=== PATIENT | female | born 1940 | race Caucasian/White ===

== ENCOUNTER 2017-06-26 08:33 | Inpatient (IN) | payer OTHER, BC ==
[~2017-06-26] VITALS: Ht 144.8 cm; Wt 49.9 kg
[2017-06-26 08:33] VITALS: BP_SYST 92
[~2017-06-26 08:33] MED LIST: AMLO5TAB4 PO; IBUP-786 PO; LEVO88TA2 PO; METHOTREXATE IM/IV/SC; REMI100 IM/IV
[2017-06-26] MEDS ORDERED: NACL 0.9% 1,000 ML IV ONE ×2 (09:00→15:45)
[2017-06-26 09:21] LABS: BASOPHILS % (AUTO) 0.1 % (0.0-2.0); EOSINOPHILS # (AUTO) 0.5 K/uL (0.0-0.4); MEAN CORPUSCULAR HGB CONC 34 % (32-36); MEAN CORPUSCULAR VOLUME 104 fL (79.0-98.0); RED CELL DISTRIBUTION WIDTH 13.6 % (9.0-15.0)
[2017-06-26 09:24] LABS: EOSINOPHILS % (AUTO) 5.6 % (0.0-4.0); HEMATOCRIT 36.7 % (36-48); HEMOGLOBIN 12.4 g/dL (12.0-16.0); LYMPHOCYTES # (AUTO) 1.1 K/uL (1.0-5.5); LYMPHOCYTES % (AUTO) 11.3 % (20.5-51.5); MEAN CORPUSCULAR HEMOGLOBIN 35 pg (27-31); MONOCYTES # (AUTO) 0.4 K/uL (0.0-1.0); NEUTROPHILS # (AUTO) 7.3 K/uL (1.8-7.7); RED BLOOD CELL COUNT(AUTO) 3.52 MIL/uL (4.2-6.2); WHITE BLOOD COUNT (AUTO) 9.3 K/uL (4.8-10.8)
[2017-06-26 09:40] LABS: ANION GAP 14 (5-15); CALCIUM 7.2 mg/dL (8.4-11.0); CHLORIDE 102 mmol/L (98-107); CREATININE 4.01 mg/dL (0.55-1.30); POTASSIUM 4.4 mmol/L (3.5-5.1); SODIUM SERUM 135 mmol/L (136-145); UREA NITROGEN, BLOOD 49 mg/dL (8-21)
[2017-06-26 09:41] LABS: INR 1.3 (0.8-1.2); PROTHROMBIN TIME 13.8 SECS (9.5-12.5)
[2017-06-26 09:59] LABS: PLATELET COUNT (AUTO) 32 K/uL (130-430)
[2017-06-26 10:03] LABS: ALANINE AMINOTRANSFERASE 39 U/L (12-78); ALBUMIN 1.5 g/dL (3.4-4.8); ASPARTATE AMINOTRANSFERASE 113 U/L (10-37); THYROID STIMULATING HORMONE 48.55 uIu/mL (0.36-3.74); TOTAL BILIRUBIN 2.7 mg/dL (0.0-1.0)
[2017-06-26] MEDS ORDERED: DEXTROSE 50% JECT 50 ML DISP.SYRIN ONE ×2 (10:05→10:12)
[2017-06-26 10:10] LABS: GLUCOSE 44 mg/dL (70-99)
[2017-06-26] MEDS ORDERED: DEXTROSE 50% JECT 50 ML DISP.SYRIN IVP ONE (11:00)
[2017-06-26] MEDS ORDERED: MORPHINE 2 MG/ML INJ. SYRINGE IVP ONE (11:15)
[2017-06-26 12:11] VITALS: BP_SYST 113
[2017-06-26 12:19] VITALS: BP_SYST 113
[2017-06-26] MEDS: NACL 0.9% 1,000 ML IV SCH ×2 (12:30→21:39)
[2017-06-26 16:08] LABS: BILIRUBIN,URINE 1+ (NEGATIVE); BLOOD, URINE 2+ (NEGATIVE); CLARITY/URINE CLOUDY (CLEAR); COLOR,URINE YELLOW (YELLOW); GLUCOSE,URINE NEGATIVE (NEGATIVE); KETONES,URINE NEGATIVE (NEGATIVE); LEUKOCYTE ESTERASE ,URINE 3+ (NEGATIVE); NITRITE, URINE POSITIVE (NEGATIVE); PH,URINE 6.5 (5.0-8.0); PROTEIN URINE 2+ (NEGATIVE)
[2017-06-26 16:17] VITALS: BP_SYST 99
[2017-06-26 16:28] LABS: BACTERIA,URINE MANY /HPF (None Seen); MUCUS,URINE None Seen /LPF (None Seen); WBC,URINE >100 /HPF (0-3)
[2017-06-26 16:29] LABS: URINE AMORPHOUS URATE 2+ /HPF (None Seen)
[2017-06-26] MEDS: cefTRIAXone 1 GM IVPB PREMIX 50 ML IV SCH (19:44)
[2017-06-26] MEDS ORDERED: DIPHENHYDRAMINE INJ 50 MG/ML VIAL IVP PRN (20:00)
[2017-06-26] MEDS ORDERED: NS 500 ML IV ONE (20:00)
[2017-06-26 22:00] VITALS: BP_SYST 98
[2017-06-26] MEDS: traMADol HCL HCL 50 MG TABLET (ULTRAM) PO PRN (22:24)
[2017-06-26 23:00] VITALS: BP_SYST 90
[2017-06-26] MEDS ORDERED: metroNIDAZOLE 500 mg/NS 100 ML IV SCH (23:30)
[2017-06-26] MEDS ORDERED: metroNIDAZOLE 500 mg/NS 100 ML IV ONE (23:44)
[2017-06-26] MEDS ORDERED: NOREPINEPHRINE 4 MG/4 ML VIAL IV ONE (23:47)
[2017-06-27] VITALS (24 sets, daily range): BP systolic 73–143
[2017-06-27] MEDS: NACL 0.9% 1,000 ML IV SCH ×5 (02:04→23:31)
[2017-06-27] MEDS ORDERED: NOREPINEPHRINE 4 MG/4 ML VIAL IV ONE (05:04)
[2017-06-27] MEDS: NOREPINEPHRINE BITARTRATE 4 MG in D5W 246 ML IV PRN ×4 (06:13→23:47)
[2017-06-27] MEDS: LEVOTHYROXINE SODIUM 0.1 MG TABLET PO SCH (06:25)
[2017-06-27 06:35] LABS: HEMOGLOBIN 11.6 g/dL (12.0-16.0); MEAN CORPUSCULAR HGB CONC 34 % (32-36); MEAN CORPUSCULAR VOLUME 106 fL (79.0-98.0)
[2017-06-27 06:45] LABS: INR 1.3 (0.8-1.2); PROTHROMBIN TIME 14.4 SECS (9.5-12.5)
[2017-06-27 06:47] LABS: BASOPHILS % (AUTO) 0.2 % (0.0-2.0); EOSINOPHILS # (AUTO) 0.3 K/uL (0.0-0.4); EOSINOPHILS % (AUTO) 3.1 % (0.0-4.0); HEMATOCRIT 34.3 % (36-48); LYMPHOCYTES # (AUTO) 0.8 K/uL (1.0-5.5); LYMPHOCYTES % (AUTO) 9.1 % (20.5-51.5); MEAN CORPUSCULAR HEMOGLOBIN 36 pg (27-31); MONOCYTES # (AUTO) 0.2 K/uL (0.0-1.0); MONOCYTES % (AUTO) 1.9 % (1.7-9.3); NEUTROPHILS % (AUTO) 85.7 % (40.0-70.0); RED BLOOD CELL COUNT(AUTO) 3.25 MIL/uL (4.2-6.2); RED CELL DISTRIBUTION WIDTH 13.7 % (9.0-15.0); WHITE BLOOD COUNT (AUTO) 9.3 K/uL (4.8-10.8)
[2017-06-27 07:06] LABS: ALANINE AMINOTRANSFERASE 30 U/L (12-78); ALBUMIN 1.4 g/dL (3.4-4.8); AMYLASE 9 U/L (0-100); ANION GAP 13 (5-15); ASPARTATE AMINOTRANSFERASE 83 U/L (10-37); CHLORIDE 110 mmol/L (98-107); CREATININE 3.12 mg/dL (0.55-1.30); GLUCOSE 51 mg/dL (70-99); LIPASE 27 U/L (73-393); POTASSIUM 3.1 mmol/L (3.5-5.1); SODIUM SERUM 140 mmol/L (136-145); TOTAL BILIRUBIN 3.1 mg/dL (0.0-1.0); UREA NITROGEN, BLOOD 42 mg/dL (8-21)
[2017-06-27 07:09] LABS: BILIRUBIN,URINE NEGATIVE (NEGATIVE); BLOOD, URINE NEGATIVE (NEGATIVE); CLARITY/URINE CLEAR (CLEAR); COLOR,URINE YELLOW (YELLOW); GLUCOSE,URINE NEGATIVE (NEGATIVE); KETONES,URINE NEGATIVE (NEGATIVE); LEUKOCYTE ESTERASE ,URINE NEGATIVE (NEGATIVE); NITRITE, URINE NEGATIVE (NEGATIVE); PROTEIN URINE NEGATIVE (NEGATIVE); UROBILINOGEN,URINE 0.2 (0.2-1.0)
[2017-06-27 07:14] LABS: CALCIUM 6.1 mg/dL (8.4-11.0)
[2017-06-27 08:28] LABS: PLATELET COUNT (AUTO) 24 K/uL (130-430)
[2017-06-27] MEDS ORDERED: CALCIUM CHLORIDE 1 GM in NS 100 ML IV ONE (08:45)
[2017-06-27] MEDS ORDERED: POTASSIUM CHLORIDE 20 MEQ TAB.PRT.SR PO ONE (08:45)
[2017-06-27] MEDS ORDERED: LEVOTHYROXINE SODIUM 0.088 MG TABLET PO SCH (09:00)
[2017-06-27 10:03] LABS: FREE T4 (FREE THYROXINE) 0.2 ng/dl (0.8-1.5)
[2017-06-27] MEDS: NEPHROVITE, (FOLIC ACID/VITAMIN B COMP W-C 1 TAB) PO SCH (10:28)
[2017-06-27 10:36] LABS: FIBRINOGEN 290 mg/dL (200-400)
[2017-06-27] MEDS ORDERED: GENTAMICIN 100 mg/50 mL NS 50 ML IV ONE (15:00)
[2017-06-27] MEDS ORDERED: MAG-AL HYDROX/SIMETH 30 ML UDC PO PRN (16:15)
[2017-06-27] MEDS ORDERED: PHYTONADIONE 5 MG TABLET PO ONE ×2 (17:15→19:30)
[2017-06-27] MEDS: ALBUMIN HUMAN 25% 50 ML IV SCH ×2 (17:44→21:30)
[2017-06-27 18:43] LABS: INR 1.4 (0.8-1.2); PROTHROMBIN TIME 14.9 SECS (9.5-12.5)
[2017-06-27] MEDS: cefTRIAXone 1 GM IVPB PREMIX 50 ML IV SCH (18:51)
[2017-06-27] MEDS: DEXAMETHASONE SOD PHOSPHATE 4 MG/ML VIAL IVP SCH (18:52)
[2017-06-27] MEDS: LEUCOVORIN CALCIUM 5 MG TABLET PO SCH (20:13)
[2017-06-27] MEDS: FAMOTIDINE 20 MG TABLET PO SCH (20:32)
[2017-06-27] MEDS: traMADol HCL HCL 50 MG TABLET (ULTRAM) PO PRN (23:01)
[2017-06-28] VITALS (23 sets, daily range): BP systolic 100–165
[2017-06-28] MEDS: LEUCOVORIN CALCIUM 5 MG TABLET PO SCH ×2 (05:33→17:36)
[2017-06-28] MEDS: NACL 0.9% 1,000 ML IV SCH ×2 (05:34→11:40)
[2017-06-28] MEDS: NOREPINEPHRINE BITARTRATE 4 MG in D5W 246 ML IV PRN (05:35)
[2017-06-28] MEDS: LEVOTHYROXINE SODIUM 0.1 MG TABLET PO SCH (06:29)
[2017-06-28 06:50] LABS: INR 1.3 (0.8-1.2); PROTHROMBIN TIME 14.3 SECS (9.5-12.5)
[2017-06-28 06:54] LABS: ALANINE AMINOTRANSFERASE 32 U/L (12-78); ALBUMIN 2.3 g/dL (3.4-4.8); ANION GAP 14 (5-15); ASPARTATE AMINOTRANSFERASE 111 U/L (10-37); CHLORIDE 108 mmol/L (98-107); CREATININE 2.74 mg/dL (0.55-1.30); GLUCOSE 186 mg/dL (70-99); POTASSIUM 4.4 mmol/L (3.5-5.1); SODIUM SERUM 133 mmol/L (136-145); TOTAL BILIRUBIN 5.1 mg/dL (0.0-1.0); UREA NITROGEN, BLOOD 39 mg/dL (8-21)
[2017-06-28 07:18] LABS: CALCIUM 6.5 mg/dL (8.4-11.0)
[2017-06-28 08:54] LABS: MEAN CORPUSCULAR HGB CONC 34 % (32-36); WHITE BLOOD COUNT (AUTO) 18.4 K/uL (4.8-10.8)
[2017-06-28] MEDS: NEPHROVITE, (FOLIC ACID/VITAMIN B COMP W-C 1 TAB) PO SCH (08:54)
[2017-06-28] MEDS: FAMOTIDINE 20 MG TABLET PO SCH ×2 (08:54→21:00)
[2017-06-28] MEDS: PANTOPRAZOLE SODIUM 40 MG TAB PO SCH (08:56)
[2017-06-28 08:57] LABS: HEMATOCRIT 31.4 % (36-48); HEMOGLOBIN 10.7 g/dL (12.0-16.0); MEAN CORPUSCULAR HEMOGLOBIN 36 pg (27-31); MEAN CORPUSCULAR VOLUME 105 fL (79.0-98.0); RED CELL DISTRIBUTION WIDTH 13.8 % (9.0-15.0)
[2017-06-28 09:36] LABS: ATYPICAL LYMPHOCYTES % 0 % (0-0); BAND % (MANUAL) 11 % (0-6); BASOPHILS % (MANUAL) 0 % (0-2); EOSINOPHILS % (MANUAL) 0 % (0-7); LYMPHOCYTES % (MANUAL) 5 % (20-46); MONOCYTES % (MANUAL) 3 % (0-11); PLATELET COUNT (AUTO) 24 K/uL (130-430)
[2017-06-28] MEDS: JECT IV SCH ×2 (15:49→23:30)
[2017-06-28] MEDS: SODIUM BICARBONATE 8.4% IV SCH ×2 (15:49→23:30)
[2017-06-28] MEDS: NACL 0.45% IV SCH ×2 (15:49→23:30)
[2017-06-28] MEDS: cefTRIAXone 1 GM IVPB PREMIX 50 ML IV SCH (17:36)
[2017-06-28] MEDS: DEXAMETHASONE SOD PHOSPHATE 4 MG/ML VIAL IVP SCH (17:37)
[2017-06-28] MEDS ORDERED: HEPARIN SODIUM,PORCINE 5000 UNITS/ML VIAL ONE (19:26)
[2017-06-29] VITALS (24 sets, daily range): BP systolic 104–159
[2017-06-29] MEDS: LEUCOVORIN CALCIUM 5 MG TABLET PO SCH ×2 (05:08→18:48)
[2017-06-29] MEDS: LEVOTHYROXINE SODIUM 0.1 MG TABLET PO SCH (06:25)
[2017-06-29 06:43] LABS: HEMOGLOBIN 9.6 g/dL (12.0-16.0); MEAN CORPUSCULAR HEMOGLOBIN 36 pg (27-31)
[2017-06-29 06:52] LABS: INR 1.2 (0.8-1.2); PROTHROMBIN TIME 13.5 SECS (9.5-12.5)
[2017-06-29 06:57] LABS: EOSINOPHILS % (AUTO) 0.1 % (0.0-4.0); HEMATOCRIT 27.6 % (36-48); LYMPHOCYTES % (AUTO) 7.8 % (20.5-51.5); MEAN CORPUSCULAR HGB CONC 35 % (32-36); MEAN CORPUSCULAR VOLUME 103 fL (79.0-98.0); MONOCYTES # (AUTO) 0.2 K/uL (0.0-1.0); MONOCYTES % (AUTO) 1.3 % (1.7-9.3); NEUTROPHILS # (AUTO) 11.4 K/uL (1.8-7.7); NEUTROPHILS % (AUTO) 90.8 % (40.0-70.0); RED BLOOD CELL COUNT(AUTO) 2.67 MIL/uL (4.2-6.2); RED CELL DISTRIBUTION WIDTH 13.9 % (9.0-15.0); WHITE BLOOD COUNT (AUTO) 12.6 K/uL (4.8-10.8)
[2017-06-29 07:02] LABS: ANION GAP 14 (5-15); CHLORIDE 108 mmol/L (98-107); CREATININE 2.34 mg/dL (0.55-1.30); GLUCOSE 82 mg/dL (70-99); POTASSIUM 3.1 mmol/L (3.5-5.1); SODIUM SERUM 137 mmol/L (136-145); UREA NITROGEN, BLOOD 42 mg/dL (8-21)
[2017-06-29] MEDS: NACL 0.45% IV SCH ×2 (07:06→15:59)
[2017-06-29] MEDS: JECT IV SCH ×2 (07:06→15:59)
[2017-06-29] MEDS: SODIUM BICARBONATE 8.4% IV SCH ×2 (07:06→15:59)
[2017-06-29 07:23] LABS: BILIRUBIN,DIRECT 5.2 mg/dL (0.0-0.3)
[2017-06-29 07:36] LABS: CALCIUM 5.8 mg/dL (8.4-11.0)
[2017-06-29 08:00] LABS: PLATELET COUNT (AUTO) 11 K/uL (130-430)
[2017-06-29] MEDS: LACTULOSE 20 GM/30 ML UDC PO SCH ×2 (08:44→20:44)
[2017-06-29] MEDS: PANTOPRAZOLE SODIUM 40 MG TAB PO SCH (08:44)
[2017-06-29] MEDS: FAMOTIDINE 20 MG TABLET PO SCH (08:44)
[2017-06-29] MEDS: NEPHROVITE, (FOLIC ACID/VITAMIN B COMP W-C 1 TAB) PO SCH (08:45)
[2017-06-29] MEDS ORDERED: COMMUNICATION ORDER XX ONE (09:30)
[2017-06-29] MEDS ORDERED: CALCIUM GLUCONATE 1 GM/10 ML VIAL IVP ONE (10:45)
[2017-06-29] MEDS ORDERED: CALCIUM GLUCONATE 1 GM in D5W 50 ML IV ONE (11:30)
[2017-06-29] MEDS ORDERED: POTASSIUM CHLORIDE 30 MEQ in NS 250 ML IV ONE (11:30)
[2017-06-29 12:04] LABS: ALBUMIN 1.9 g/dL (3.4-4.8); BILIRUBIN,DIRECT 5.1 mg/dL (0.0-0.3); TOTAL BILIRUBIN 5.9 mg/dL (0.0-1.0)
[2017-06-29 12:23] LABS: FOLATE (FOLIC ACID) >20.0 ng/mL (>3.0)
[2017-06-29 14:39] LABS: FERRITIN 638 ng/mL (15-150)
[2017-06-29] MEDS: DEXAMETHASONE SOD PHOSPHATE 4 MG/ML VIAL IVP SCH (18:30)
[2017-06-29] MEDS: cefTRIAXone 1 GM IVPB PREMIX 50 ML IV SCH (18:35)
[2017-06-30] VITALS (20 sets, daily range): BP systolic 92–142
[2017-06-30] MEDS: JECT IV SCH (00:23)
[2017-06-30] MEDS: NACL 0.45% IV SCH (00:23)
[2017-06-30] MEDS: SODIUM BICARBONATE 8.4% IV SCH (00:23)
[2017-06-30] MEDS ORDERED: LevALBUTEROL HCL 1.25 MG/0.5 ML *CONC.* VIAL.NEB (XOPENEX CONC.) INH PRN (04:15)
[2017-06-30] MEDS ORDERED: FUROSEMIDE 40 MG/4 ML VIAL IVP ONE (04:15)
[2017-06-30] MEDS ORDERED: LevALBUTEROL HCL 1.25 MG/0.5 ML *CONC.* VIAL.NEB (XOPENEX CONC.) INH ONE (04:36)
[2017-06-30 07:18] LABS: INR 1.2 (0.8-1.2); PROTHROMBIN TIME 12.7 SECS (9.5-12.5)
[2017-06-30 08:27] LABS: FIBRINOGEN 207 mg/dL (200-400)
[2017-06-30] MEDS: LEVOTHYROXINE SODIUM 0.1 MG VIAL IVP SCH (08:53)
[2017-06-30] MEDS: PANTOPRAZOLE SODIUM 40 MG TAB PO SCH (08:53)
[2017-06-30] MEDS: LACTULOSE 20 GM/30 ML UDC PO SCH ×2 (08:53→20:46)
[2017-06-30] MEDS: LEUCOVORIN CALCIUM 5 MG TABLET PO SCH (08:54)
[2017-06-30] MEDS: QUEtiapine FUMARATE 25 MG TABLET PO SCH ×3 (08:54→20:47)
[2017-06-30] MEDS: NEPHROVITE, (FOLIC ACID/VITAMIN B COMP W-C 1 TAB) PO SCH (08:54)
[2017-06-30 09:29] LABS: HEMATOCRIT 28.8 % (36-48); HEMOGLOBIN 9.8 g/dL (12.0-16.0); MEAN CORPUSCULAR HEMOGLOBIN 35 pg (27-31); MEAN CORPUSCULAR HGB CONC 34 % (32-36); MEAN CORPUSCULAR VOLUME 103 fL (79.0-98.0); PLATELET COUNT (AUTO) 54 K/uL (130-430); RED CELL DISTRIBUTION WIDTH 13.6 % (9.0-15.0); WHITE BLOOD COUNT (AUTO) 9.9 K/uL (4.8-10.8)
[2017-06-30 09:38] LABS: ALANINE AMINOTRANSFERASE 124 U/L (12-78); ALBUMIN 2.1 g/dL (3.4-4.8); ANION GAP 17 (5-15); ASPARTATE AMINOTRANSFERASE 283 U/L (10-37); CHLORIDE 105 mmol/L (98-107); CREATININE 1.96 mg/dL (0.55-1.30); GLUCOSE 69 mg/dL (70-99); SODIUM SERUM 140 mmol/L (136-145); TOTAL BILIRUBIN 6.1 mg/dL (0.0-1.0); UREA NITROGEN, BLOOD 37 mg/dL (8-21)
[2017-06-30 10:18] LABS: POTASSIUM 2.7 mmol/L (3.5-5.1)
[2017-06-30 10:19] LABS: CALCIUM 6.1 mg/dL (8.4-11.0)
[2017-06-30 10:36] LABS: BASOPHILS % (MANUAL) 0 % (0-2); EOSINOPHILS % (MANUAL) 0 % (0-7); LYMPHOCYTES % (MANUAL) 11 % (20-46); MONOCYTES % (MANUAL) 3 % (0-11)
[2017-06-30] MEDS: CALCIUM CARBONATE/VITAMIN D3 1 TAB TABLET PO SCH ×2 (10:52→20:48)
[2017-06-30] MEDS: POTASSIUM CHLORIDE 20 MEQ TAB.PRT.SR PO SCH ×2 (10:53→20:48)
[2017-06-30 11:00] LABS: HEPATITIS A AB, IgM Negative (Negative); HEPATITIS B CORE AB, TOTAL Negative (Negative); HEPATITIS B SURFACE AG Negative (Negative); HEPATITIS C VIRUS AB <0.1 s/co ratio (0.0-0.9)
[2017-06-30] MEDS ORDERED: LORazepam 2 MG/ML VIAL ONE (12:46)
[2017-06-30 17:12] LABS: ANTI NUCLEAR AB WITH REFLEX Negative (Negative)
[2017-06-30] MEDS: cefTRIAXone 1 GM IVPB PREMIX 50 ML IV SCH (17:16)
[2017-07-01] VITALS (8 sets, daily range): BP systolic 124–137
[2017-07-01 01:22] LABS: ALPHA-1-ANTITRYPSIN, S 189 mg/dL (90-200); CERULOPLASMIN 10.9 mg/dL (19.0-39.0)
[2017-07-01 07:19] LABS: HEMATOCRIT 26.8 % (36-48); HEMOGLOBIN 9.2 g/dL (12.0-16.0); MEAN CORPUSCULAR HEMOGLOBIN 36 pg (27-31); MEAN CORPUSCULAR HGB CONC 34 % (32-36); MEAN CORPUSCULAR VOLUME 103 fL (79.0-98.0); RED CELL DISTRIBUTION WIDTH 13.5 % (9.0-15.0); WHITE BLOOD COUNT (AUTO) 10.1 K/uL (4.8-10.8)
[2017-07-01 07:30] LABS: INR 1.2 (0.8-1.2); PROTHROMBIN TIME 13.1 SECS (9.5-12.5)
[2017-07-01 07:32] LABS: ALANINE AMINOTRANSFERASE 127 U/L (12-78); ALBUMIN 1.8 g/dL (3.4-4.8); ANION GAP 11 (5-15); ASPARTATE AMINOTRANSFERASE 206 U/L (10-37); BILIRUBIN,DIRECT 2.4 mg/dL (0.0-0.3); CHLORIDE 111 mmol/L (98-107); CREATININE 1.84 mg/dL (0.55-1.30); GLUCOSE 54 mg/dL (70-99); SODIUM SERUM 144 mmol/L (136-145); TOTAL BILIRUBIN 3.4 mg/dL (0.0-1.0); UREA NITROGEN, BLOOD 38 mg/dL (8-21)
[2017-07-01 07:35] LABS: PLATELET COUNT (AUTO) 47 K/uL (130-430)
[2017-07-01 07:53] LABS: POTASSIUM 2.4 mmol/L (3.5-5.1)
[2017-07-01 07:54] LABS: CALCIUM 6.2 mg/dL (8.4-11.0)
[2017-07-01] MEDS ORDERED: POTASSIUM CHLORIDE 40 MEQ in NS 250 ML IV ONE (08:15)
[2017-07-01] MEDS: LACTULOSE 20 GM/30 ML UDC PO SCH (08:18)
[2017-07-01] MEDS: POTASSIUM CHLORIDE 20 MEQ TAB.PRT.SR PO SCH ×2 (08:18→21:05)
[2017-07-01] MEDS: NEPHROVITE, (FOLIC ACID/VITAMIN B COMP W-C 1 TAB) PO SCH (08:18)
[2017-07-01] MEDS: PANTOPRAZOLE SODIUM 40 MG TAB PO SCH (08:18)
[2017-07-01] MEDS: CALCIUM CARBONATE/VITAMIN D3 1 TAB TABLET PO SCH ×2 (08:18→21:05)
[2017-07-01] MEDS: QUEtiapine FUMARATE 25 MG TABLET PO SCH ×3 (08:19→21:05)
[2017-07-01] MEDS: LEVOTHYROXINE SODIUM 0.1 MG VIAL IVP SCH (08:20)
[2017-07-01 09:02] LABS: BASOPHILS % (MANUAL) 0 % (0-2); EOSINOPHILS % (MANUAL) 0 % (0-7); LYMPHOCYTES % (MANUAL) 20 % (20-46); MONOCYTES % (MANUAL) 4 % (0-11)
[2017-07-01 11:07] LABS: PTT-LA 49.6 sec (0.0-51.9)
[2017-07-01] MEDS: cefTRIAXone 1 GM IVPB PREMIX 50 ML IV SCH (17:03)
[2017-07-01] MEDS ORDERED: cefTRIAXone 1 GM IVPB PREMIX 0 ML IV ONE (20:42)
[2017-07-01] MEDS: KCL 10 mEq in D5/0.45NS 1000mL 1,000 ML IV SCH (20:47)
[2017-07-02 04:48] VITALS: BP_SYST 132
[2017-07-02 07:33] LABS: HEMATOCRIT 23.9 % (36-48); HEMOGLOBIN 8.2 g/dL (12.0-16.0); MEAN CORPUSCULAR HEMOGLOBIN 36 pg (27-31); MEAN CORPUSCULAR HGB CONC 35 % (32-36); MEAN CORPUSCULAR VOLUME 103 fL (79.0-98.0); RED BLOOD CELL COUNT(AUTO) 2.31 MIL/uL (4.2-6.2); RED CELL DISTRIBUTION WIDTH 13.5 % (9.0-15.0); WHITE BLOOD COUNT (AUTO) 6.5 K/uL (4.8-10.8)
[2017-07-02 07:46] VITALS: BP_SYST 138
[2017-07-02 07:55] LABS: PLATELET COUNT (AUTO) 46 K/uL (130-430)
[2017-07-02 08:12] LABS: ALANINE AMINOTRANSFERASE 131 U/L (12-78); ALBUMIN 1.7 g/dL (3.4-4.8); ANION GAP 12 (5-15); ASPARTATE AMINOTRANSFERASE 203 U/L (10-37); CHLORIDE 116 mmol/L (98-107); CREATININE 1.16 mg/dL (0.55-1.30); GLUCOSE 95 mg/dL (70-99); SODIUM SERUM 147 mmol/L (136-145); TOTAL BILIRUBIN 2.6 mg/dL (0.0-1.0); UREA NITROGEN, BLOOD 24 mg/dL (8-21)
[2017-07-02 09:42] LABS: BASOPHILS % (MANUAL) 0 % (0-2); EOSINOPHILS % (MANUAL) 1 % (0-7); LYMPHOCYTES % (MANUAL) 19 % (20-46); MONOCYTES % (MANUAL) 4 % (0-11)
[2017-07-02] MEDS: NEPHROVITE, (FOLIC ACID/VITAMIN B COMP W-C 1 TAB) PO SCH (09:53)
[2017-07-02] MEDS: CALCIUM CARBONATE/VITAMIN D3 1 TAB TABLET PO SCH ×2 (09:53→20:44)
[2017-07-02] MEDS: POTASSIUM CHLORIDE 20 MEQ TAB.PRT.SR PO SCH ×2 (09:53→20:44)
[2017-07-02] MEDS: LACTULOSE 20 GM/30 ML UDC PO SCH (09:53)
[2017-07-02] MEDS: LEVOTHYROXINE SODIUM 0.1 MG VIAL IVP SCH (09:54)
[2017-07-02] MEDS: PANTOPRAZOLE SODIUM 40 MG TAB PO SCH (09:54)
[2017-07-02] MEDS: QUEtiapine FUMARATE 25 MG TABLET PO SCH ×3 (09:54→20:45)
[2017-07-02 11:27] VITALS: BP_SYST 145
[2017-07-02 14:50] LABS: dRVVT 67.9 sec (0.0-47.0); dRVVT MIX 53.9 sec (0.0-47.0)
[2017-07-02] MEDS: KCL 10 mEq in D5/0.45NS 1000mL 1,000 ML IV SCH (14:50)
[2017-07-02 14:51] LABS: ANTI-SMOOTH MUSCLE AB 29 Units (0-19)
[2017-07-02] MEDS ORDERED: POTASSIUM CHLORIDE 20 MEQ TAB.PRT.SR PO ONE (16:00)
[2017-07-02] MEDS: cefTRIAXone 1 GM IVPB PREMIX 50 ML IV SCH (17:13)
[2017-07-02 18:02] VITALS: BP_SYST 140
[2017-07-02 20:17] VITALS: BP_SYST 143
[2017-07-02] MEDS: ACETAMINOPHEN 325 MG TABLET PO PRN (23:44)
[2017-07-03 00:04] VITALS: BP_SYST 137
[2017-07-03 06:17] VITALS: BP_SYST 129
[2017-07-03 07:42] LABS: ALANINE AMINOTRANSFERASE 115 U/L (12-78); ALBUMIN 1.7 g/dL (3.4-4.8); ANION GAP 9 (5-15); ASPARTATE AMINOTRANSFERASE 130 U/L (10-37); CHLORIDE 116 mmol/L (98-107); CREATININE 0.86 mg/dL (0.55-1.30); GLUCOSE 100 mg/dL (70-99); POTASSIUM 3.3 mmol/L (3.5-5.1); SODIUM SERUM 146 mmol/L (136-145); TOTAL BILIRUBIN 2.1 mg/dL (0.0-1.0); UREA NITROGEN, BLOOD 13 mg/dL (8-21)
[2017-07-03 07:44] LABS: HEMATOCRIT 24.6 % (36-48); HEMOGLOBIN 8.3 g/dL (12.0-16.0); MEAN CORPUSCULAR HEMOGLOBIN 35 pg (27-31); MEAN CORPUSCULAR HGB CONC 34 % (32-36); MEAN CORPUSCULAR VOLUME 104 fL (79.0-98.0); RED BLOOD CELL COUNT(AUTO) 2.37 MIL/uL (4.2-6.2); RED CELL DISTRIBUTION WIDTH 13.4 % (9.0-15.0); WHITE BLOOD COUNT (AUTO) 6.4 K/uL (4.8-10.8)
[2017-07-03 08:01] VITALS: BP_SYST 133
[2017-07-03 08:26] LABS: PLATELET COUNT (AUTO) 48 K/uL (130-430)
[2017-07-03] MEDS: POTASSIUM CHLORIDE 20 MEQ TAB.PRT.SR PO SCH ×2 (09:05→21:00)
[2017-07-03] MEDS: PANTOPRAZOLE SODIUM 40 MG TAB PO SCH (09:06)
[2017-07-03] MEDS: NEPHROVITE, (FOLIC ACID/VITAMIN B COMP W-C 1 TAB) PO SCH (09:06)
[2017-07-03] MEDS: LACTULOSE 20 GM/30 ML UDC PO SCH (09:06)
[2017-07-03] MEDS: QUEtiapine FUMARATE 25 MG TABLET PO SCH ×3 (09:06→21:00)
[2017-07-03] MEDS: CALCIUM CARBONATE/VITAMIN D3 1 TAB TABLET PO SCH ×2 (09:06→21:00)
[2017-07-03] MEDS ORDERED: IBUPROFEN 600 MG TABLET PO PRN (09:45)
[2017-07-03] MEDS ORDERED: LORazepam 2 MG/ML VIAL IVP ONE (09:45)
[2017-07-03] MEDS: ACETAMINOPHEN 325 MG TABLET PO PRN (09:53)
[2017-07-03] MEDS: LEVOTHYROXINE SODIUM 0.1 MG VIAL IVP SCH (10:19)
[2017-07-03 10:29] LABS: ATYPICAL LYMPHOCYTES % 0 % (0-0); BAND % (MANUAL) 3 % (0-6); BASOPHILS % (MANUAL) 0 % (0-2); EOSINOPHILS % (MANUAL) 0 % (0-7); LYMPHOCYTES % (MANUAL) 21 % (20-46); MONOCYTES % (MANUAL) 2 % (0-11)
[2017-07-03 12:14] VITALS: BP_SYST 126
[2017-07-03 16:30] VITALS: BP_SYST 123
[2017-07-03 20:00] VITALS: BP_SYST 143
[2017-07-03] MEDS: KCL 10 mEq in D5/0.45NS 1000mL 1,000 ML IV SCH (23:10)
[2017-07-04] VITALS (7 sets, daily range): BP systolic 133–149
[2017-07-04 07:53] LABS: INR 1.1 (0.8-1.2); PROTHROMBIN TIME 12.1 SECS (9.5-12.5)
[2017-07-04 08:16] LABS: ANION GAP 11 (5-15); CHLORIDE 114 mmol/L (98-107); POTASSIUM 3.1 mmol/L (3.5-5.1); SODIUM SERUM 146 mmol/L (136-145)
[2017-07-04 08:31] LABS: BASOPHILS % (AUTO) 0.4 % (0.0-2.0); EOSINOPHILS # (AUTO) 0.1 K/uL (0.0-0.4); EOSINOPHILS % (AUTO) 0.7 % (0.0-4.0); HEMATOCRIT 25.8 % (36-48); HEMOGLOBIN 8.6 g/dL (12.0-16.0); LYMPHOCYTES # (AUTO) 1.1 K/uL (1.0-5.5); LYMPHOCYTES % (AUTO) 11.2 % (20.5-51.5); MEAN CORPUSCULAR HEMOGLOBIN 35 pg (27-31); MEAN CORPUSCULAR HGB CONC 34 % (32-36); MEAN CORPUSCULAR VOLUME 104 fL (79.0-98.0); MONOCYTES # (AUTO) 0.1 K/uL (0.0-1.0); MONOCYTES % (AUTO) 0.8 % (1.7-9.3); NEUTROPHILS # (AUTO) 8.2 K/uL (1.8-7.7); RED BLOOD CELL COUNT(AUTO) 2.48 MIL/uL (4.2-6.2); RED CELL DISTRIBUTION WIDTH 13.7 % (9.0-15.0); WHITE BLOOD COUNT (AUTO) 9.5 K/uL (4.8-10.8)
[2017-07-04 08:56] LABS: PLATELET COUNT (AUTO) 53 K/uL (130-430)
[2017-07-04 09:09] LABS: ALANINE AMINOTRANSFERASE 98 U/L (12-78); ALBUMIN 1.9 g/dL (3.4-4.8); ASPARTATE AMINOTRANSFERASE 93 U/L (10-37); BILIRUBIN,DIRECT 1.3 mg/dL (0.0-0.3); CREATININE 0.76 mg/dL (0.55-1.30); GLUCOSE 88 mg/dL (70-99); TOTAL BILIRUBIN 1.8 mg/dL (0.0-1.0); UREA NITROGEN, BLOOD 7 mg/dL (8-21)
[2017-07-04] MEDS: LACTULOSE 20 GM/30 ML UDC PO SCH (09:19)
[2017-07-04] MEDS: NEPHROVITE, (FOLIC ACID/VITAMIN B COMP W-C 1 TAB) PO SCH (09:19)
[2017-07-04] MEDS: POTASSIUM CHLORIDE 20 MEQ TAB.PRT.SR PO SCH (09:19)
[2017-07-04] MEDS: CALCIUM CARBONATE/VITAMIN D3 1 TAB TABLET PO SCH (09:19)
[2017-07-04] MEDS: PANTOPRAZOLE SODIUM 40 MG TAB PO SCH (09:20)
[2017-07-04] MEDS: QUEtiapine FUMARATE 25 MG TABLET PO SCH ×2 (09:20→15:56)
[2017-07-04 09:28] LABS: CALCIUM 5.9 mg/dL (8.4-11.0)
[2017-07-04] MEDS: LEVOTHYROXINE SODIUM 0.1 MG VIAL IVP SCH (10:23)
[2017-07-04 11:38] LABS: NEUTROPHILS % (AUTO) 86.9 % (40.0-70.0)
[2017-07-04] MEDS ORDERED: cefTRIAXone 1 GM in D5W 50 ML IV SCH (17:00)
[2017-07-05] MEDS ORDERED: LEVOTHYROXINE SODIUM 0.1 MG TABLET PO SCH (07:00)
== END 2017-07-04 20:00 | DRG 871 ==
LOC: SED 08:33 → STU 11:38 → SIC 21:07 → STU 06-30 18:44
PROVIDERS: ADMIT Internal Medicine; ATTEND Internal Medicine
PROC: 30233R1 Transfusion of Nonautologous Platelets into Peripheral Vein, Percutaneous Approach (ICD-10-PCS; principal; 2017-06-29)
PROC: 02HV33Z Insertion of Infusion Device into Superior Vena Cava, Percutaneous Approach (ICD-10-PCS; 2017-06-30)
DX: A41.51 Sepsis due to Escherichia coli [E. coli] (principal); E43 Unspecified severe protein-calorie malnutrition; N17.0 Acute kidney failure with tubular necrosis; R65.21 Severe sepsis with septic shock; G93.41 Metabolic encephalopathy; J81.1 Chronic pulmonary edema; D68.9 Coagulation defect, unspecified; D68.62 Lupus anticoagulant syndrome; N39.0 Urinary tract infection, site not specified; B17.9 Acute viral hepatitis, unspecified; N12 Tubulo-interstitial nephritis, not specified as acute or chronic; K72.90 Hepatic failure, unspecified without coma; E86.0 Dehydration; D69.6 Thrombocytopenia, unspecified; R09.82 Postnasal drip; E16.2 Hypoglycemia, unspecified; E03.9 Hypothyroidism, unspecified; F10.10 Alcohol abuse, uncomplicated; D64.9 Anemia, unspecified; B96.89 Other specified bacterial agents as the cause of diseases classified elsewhere; E83.51 Hypocalcemia; E87.6 Hypokalemia; R45.1 Restlessness and agitation; F29 Unspecified psychosis not due to a substance or known physiological condition; I10 Essential (primary) hypertension; M06.9 Rheumatoid arthritis, unspecified; M79.7 Fibromyalgia; T45.1X1A Poisoning by antineoplastic and immunosuppressive drugs, accidental (unintentional), initial encounter; Z79.899 Other long term (current) drug therapy; Z87.440 Personal history of urinary (tract) infections; Z88.2 Allergy status to sulfonamides; Z91.14 Patient's other noncompliance with medication regimen; Z98.84 Bariatric surgery status; Z68.23 Body mass index [BMI] 23.0-23.9, adult; Z98.49 Cataract extraction status, unspecified eye; Z90.49 Acquired absence of other specified parts of digestive tract; Z88.0 Allergy status to penicillin; Z88.8 Allergy status to other drugs, medicaments and biological substances; Z88.1 Allergy status to other antibiotic agents; Z91.041 Radiographic dye allergy status
CPT/HCPCS: 36415; 71010; 76700-TC; 80048; 80053; 80076; 81000-TC; 81003; 82103; 82140-TC; 82150-TC; 82247-TC; 82248-TC; 82390; 82607; 82728; 82746; 82784; 82962; 83010; 83516; 83605; 83690-TC; 84439; 84443-TC; 85007; 85025; 85027; 85379; 85384-TC; 85610-TC; 85613; 85670; 85705; 85730-TC; 85732; 86038; 86704; 86706; 86709; 86803; 86900; 86901; 87040-TC; 87081; 87086; 87186-TC; 87340; 93005; 93306; 94640; 96374; 96375; 97110-GP; 97116-GP; 97530-GP; 99285; A6209; C1751; G0482; J0610; J0696; J1100; J1580; J1644; J1940; J2060; J2270; J3480; J3490; J7030; J7040; J7050; J7060; P9034; P9046

== ENCOUNTER 2019-01-06 14:19 | Inpatient (IN) | payer OTHER, BC ==
[2019-01-06] VITALS (7 sets, daily range): BP systolic 78–136
[~2019-01-06] VITALS: Ht 144.8 cm; Wt 50.8 kg
[~2019-01-06 14:19] MED LIST changes: +APIX5TAB PO; +CYAN1TAB52 SL; +CYAN250014 SL; -LEVO88TA2 PO; -METHOTREXATE IM/IV/SC
[2019-01-06] MEDS ORDERED: MVI 10 ML, THIAMINE HCL 100 MG, FOLIC ACID 1 MG, MAGNESIUM SULFATE 1 GM in NACL 0.9% 1,... IV ONE (14:30)
[2019-01-06] MEDS ORDERED: ONDANSETRON HCL 4 MG/2 ML VIAL IVP ONE ×2 (14:30→16:15)
[2019-01-06] MEDS ORDERED: NACL 0.9% 1,000 ML IV ONE ×2 (14:30→17:45)
[2019-01-06] MEDS ORDERED: PANTOPRAZOLE SODIUM 40 MG/VIAL (PROTONIX) IVP ONE (14:30)
[2019-01-06] MEDS ORDERED: OCTREOTIDE ACETATE 100 MCG/ML AMP IVP ONE (15:00)
[2019-01-06 15:25] LABS: RED BLOOD CELL COUNT(AUTO) 2.21 MIL/uL (4.2-6.2); WHITE BLOOD COUNT (AUTO) 6.7 K/uL (4.8-10.8)
[2019-01-06 15:27] LABS: BASOPHILS % (AUTO) 0.2 % (0.0-2.0); HEMATOCRIT 22.4 % (36-48); LYMPHOCYTES % (AUTO) 14.3 % (20.5-51.5); MEAN CORPUSCULAR HEMOGLOBIN 32 pg (27-31); MEAN CORPUSCULAR HGB CONC 31 % (32-36); MEAN CORPUSCULAR VOLUME 101 fL (79.0-98.0); MONOCYTES # (AUTO) 0.3 K/uL (0.0-1.0); MONOCYTES % (AUTO) 3.8 % (1.7-9.3); NEUTROPHILS # (AUTO) 5.5 K/uL (1.8-7.7); NEUTROPHILS % (AUTO) 81.7 % (40.0-70.0); PLATELET COUNT (AUTO) 120 K/uL (130-430); RED CELL DISTRIBUTION WIDTH 15.8 % (9.0-15.0)
[2019-01-06 15:31] LABS: ANION GAP 16 (5-15); CALCIUM 7.4 mg/dL (8.4-11.0); CHLORIDE 106 mmol/L (98-107); GLUCOSE 205 mg/dL (70-99); POTASSIUM 3.7 mmol/L (3.5-5.1); SODIUM SERUM 140 mmol/L (136-145); UREA NITROGEN, BLOOD 11 mg/dL (8-21)
[2019-01-06 15:42] LABS: ALANINE AMINOTRANSFERASE 53 U/L (12-78); ALBUMIN 1.9 g/dL (3.4-4.8); ALCOHOL, BLOOD 209 mg/dL (<10); AMYLASE 33 U/L (0-100); ASPARTATE AMINOTRANSFERASE 144 U/L (10-37); LIPASE 61 U/L (73-393); TOTAL BILIRUBIN 0.7 mg/dL (0.0-1.0)
[2019-01-06 16:00] LABS: INR 1.1 (0.8-1.2); PROTHROMBIN TIME 11.2 SECS (9.5-12.5)
[2019-01-06] MEDS ORDERED: MORPHINE 4 MG/ML INJ. SYRINGE IVP ONE (16:15)
[2019-01-06] MEDS ORDERED: LORazepam 2 MG/ML VIAL (FOR ER USE) IVP ONE (16:15)
[2019-01-06 16:55] LABS: BILIRUBIN,URINE NEGATIVE (NEGATIVE); CLARITY/URINE CLEAR (CLEAR); COLOR,URINE YELLOW (YELLOW); GLUCOSE,URINE NEGATIVE (NEGATIVE); KETONES,URINE NEGATIVE (NEGATIVE); LEUKOCYTE ESTERASE ,URINE NEGATIVE (NEGATIVE); NITRITE, URINE NEGATIVE (NEGATIVE); PROTEIN URINE TRACE (NEGATIVE); UROBILINOGEN,URINE 0.2 (0.2-1.0)
[2019-01-06 16:56] LABS: BLOOD, URINE TRACE (NEGATIVE)
[2019-01-06 17:03] LABS: BACTERIA,URINE FEW /HPF (None Seen); RBC,URINE 0-3 /HPF (0-3); WBC,URINE 0-3 /HPF (0-3)
[2019-01-06 17:11] LABS: BARBITURATE, URINE NEGATIVE (NEG <=200); BENZODIAZEPINE, URINE NEGATIVE (NEG <=150); CANNABINOID, URINE NEGATIVE (NEG <=50); COCAINE, URINE NEGATIVE (NEG <=150); METHAMPHETAMINES SCREEN,URINE NEGATIVE (NEG <=500); OPIATE, URINE NEGATIVE (NEG <=100); PHENCYCLIDINE SCREEN,URINE NEGATIVE (NEG <=25); UR TRICYCLIC ANTIDEPRESSANTS NEGATIVE (NEG <=300); URINE AMPHETAMINE NEGATIVE (NEG <=500); URINE METHADONE NEGATIVE (NEG <=200); URINE OXYCODONE SCREEN NEGATIVE (NEG <=100); URINE PROPOXYPHENE SCREEN NEGATIVE (NEG <=300)
[2019-01-06] MEDS ORDERED: PANTOPRAZOLE SODIUM 80 MG in NS 100 ML IV ONE (17:30)
[2019-01-06] MEDS ORDERED: OCTREOTIDE ACETATE 500 MCG in NS 247.5 ML IV SCH (17:30)
[2019-01-06] MEDS ORDERED: PANTOPRAZOLE SODIUM 40 MG/VIAL (PROTONIX) ONE ×2 (21:04)
[2019-01-06] MEDS ORDERED: OCTREOTIDE ACETATE 200 MCG/1 ML 5ML VIAL ONE (21:11)
[2019-01-06] MEDS ORDERED: MAGNESIUM SULFATE 1 GM/2 ML VIAL ONE (21:47)
[2019-01-06] MEDS ORDERED: THIAMINE HCL 100 MG/ML VIAL ONE (21:47)
[2019-01-06] MEDS ORDERED: MVI 10 ML VIAL IV ONE (21:47)
[2019-01-06] MEDS ORDERED: FOLIC ACID 5 MG/ML VIAL IV ONE (21:47)
[2019-01-06] MEDS: PANTOPRAZOLE SODIUM 40 MG in NS 50 ML IV SCH (21:59)
[2019-01-06] MEDS: FOLIC ACID 1 MG, THIAMINE HCL 100 MG, MAGNESIUM SULFATE 1 GM, MVI 10 ML in NACL 0.9% 1,... IV SCH (23:45)
[2019-01-07] VITALS (24 sets, daily range): BP systolic 91–155
[2019-01-07] MEDS ORDERED: PANTOPRAZOLE SODIUM 40 MG/VIAL (PROTONIX) ONE ×2 (00:39→00:40)
[2019-01-07] MEDS: ONDANSETRON HCL 4 MG/2 ML VIAL IVP PRN ×2 (01:08→10:38)
[2019-01-07] MEDS: PANTOPRAZOLE SODIUM 40 MG in NS 50 ML IV SCH ×6 (01:12→23:29)
[2019-01-07 04:12] LABS: ANION GAP 12 (5-15); CHLORIDE 110 mmol/L (98-107); CREATININE 0.86 mg/dL (0.55-1.30); GLUCOSE 158 mg/dL (70-99); POTASSIUM 3.6 mmol/L (3.5-5.1); SODIUM SERUM 143 mmol/L (136-145); UREA NITROGEN, BLOOD 6 mg/dL (8-21)
[2019-01-07 04:20] LABS: PHOSPHORUS 3.7 mg/dL (2.7-4.5)
[2019-01-07 04:32] LABS: CALCIUM 6.1 mg/dL (8.4-11.0)
[2019-01-07 04:40] LABS: HEMOGLOBIN 9.1 g/dL (12.0-16.0); RED BLOOD CELL COUNT(AUTO) 3.11 MIL/uL (4.2-6.2); WHITE BLOOD COUNT (AUTO) 6.1 K/uL (4.8-10.8)
[2019-01-07 04:41] LABS: HEMATOCRIT 27.5 % (36-48); MEAN CORPUSCULAR HEMOGLOBIN 29 pg (27-31); MEAN CORPUSCULAR HGB CONC 33 % (32-36); MEAN CORPUSCULAR VOLUME 88 fL (79.0-98.0); RED CELL DISTRIBUTION WIDTH 19.6 % (9.0-15.0)
[2019-01-07] MEDS: HYDROmorphone 1 MG INJ. 1 MG/ML AMPUL IVP PRN ×2 (05:03→20:59)
[2019-01-07] MEDS ORDERED: HYDROmorphone 1 MG INJ. 1 MG/ML AMPUL ONE (05:11)
[2019-01-07 05:14] LABS: BASOPHILS % (AUTO) 0.1 % (0.0-2.0); EOSINOPHILS % (AUTO) 0.1 % (0.0-4.0); LYMPHOCYTES # (AUTO) 1.3 K/uL (1.0-5.5); LYMPHOCYTES % (AUTO) 20.6 % (20.5-51.5); MONOCYTES # (AUTO) 0.4 K/uL (0.0-1.0); MONOCYTES % (AUTO) 6.1 % (1.7-9.3); NEUTROPHILS # (AUTO) 4.5 K/uL (1.8-7.7); NEUTROPHILS % (AUTO) 73.1 % (40.0-70.0); PLATELET COUNT (AUTO) 60 K/uL (130-430)
[2019-01-07] MEDS ORDERED: SIMETHICONE 40 MG/0.6 ML ML ONE (07:14)
[2019-01-07] MEDS ORDERED: MIDAZOLAM HCL 5 MG/5 ML VIAL ONE (07:15)
[2019-01-07] MEDS ORDERED: MEPERIDINE HCL/PF 100 MG/ML AMP ONE (07:15)
[2019-01-07] MEDS: FOLIC ACID 1 MG, THIAMINE HCL 100 MG, MAGNESIUM SULFATE 1 GM, MVI 10 ML in NACL 0.9% 1,... IV SCH ×3 (08:50→19:21)
[2019-01-07 11:17] LABS: HEMATOCRIT 27.6 % (36-48)
[2019-01-08] VITALS (22 sets, daily range): BP systolic 94–158
[2019-01-08] MEDS ORDERED: FOLIC ACID 5 MG/ML VIAL IV ONE (01:59)
[2019-01-08] MEDS ORDERED: THIAMINE HCL 100 MG/ML VIAL ONE (02:00)
[2019-01-08] MEDS ORDERED: MAGNESIUM SULFATE 1 GM/2 ML VIAL ONE (02:02)
[2019-01-08] MEDS ORDERED: MVI 10 ML VIAL IV ONE (02:02)
[2019-01-08] MEDS: FOLIC ACID 1 MG, THIAMINE HCL 100 MG, MAGNESIUM SULFATE 1 GM, MVI 10 ML in NACL 0.9% 1,... IV SCH (02:03)
[2019-01-08] MEDS: PANTOPRAZOLE SODIUM 40 MG in NS 50 ML IV SCH ×5 (04:48→22:38)
[2019-01-08 07:36] LABS: ALANINE AMINOTRANSFERASE 35 U/L (12-78); ALBUMIN 1.9 g/dL (3.4-4.8); ANION GAP 9 (5-15); ASPARTATE AMINOTRANSFERASE 79 U/L (10-37); CHLORIDE 106 mmol/L (98-107); CREATININE 0.79 mg/dL (0.55-1.30); GLUCOSE 168 mg/dL (70-99); POTASSIUM 3.2 mmol/L (3.5-5.1); SODIUM SERUM 134 mmol/L (136-145); TOTAL BILIRUBIN 0.7 mg/dL (0.0-1.0); UREA NITROGEN, BLOOD 6 mg/dL (8-21)
[2019-01-08 07:42] LABS: HEMATOCRIT 25.3 % (36-48); HEMOGLOBIN 8.2 g/dL (12.0-16.0); RED BLOOD CELL COUNT(AUTO) 2.81 MIL/uL (4.2-6.2); WHITE BLOOD COUNT (AUTO) 4.4 K/uL (4.8-10.8)
[2019-01-08 07:43] LABS: BASOPHILS % (AUTO) 0.2 % (0.0-2.0); EOSINOPHILS % (AUTO) 2.2 % (0.0-4.0); LYMPHOCYTES # (AUTO) 1.5 K/uL (1.0-5.5); LYMPHOCYTES % (AUTO) 35.3 % (20.5-51.5); MEAN CORPUSCULAR HEMOGLOBIN 29 pg (27-31); MEAN CORPUSCULAR HGB CONC 32 % (32-36); MEAN CORPUSCULAR VOLUME 90 fL (79.0-98.0); MONOCYTES # (AUTO) 0.2 K/uL (0.0-1.0); MONOCYTES % (AUTO) 4.8 % (1.7-9.3); NEUTROPHILS # (AUTO) 2.5 K/uL (1.8-7.7); NEUTROPHILS % (AUTO) 57.5 % (40.0-70.0); RED CELL DISTRIBUTION WIDTH 20.1 % (9.0-15.0)
[2019-01-08 07:44] LABS: EOSINOPHILS # (AUTO) 0.1 K/uL (0.0-0.4)
[2019-01-08 07:45] LABS: CALCIUM 5.7 mg/dL (8.4-11.0)
[2019-01-08] MEDS: LORazepam 2 MG/ML VIAL IM PRN (08:59)
[2019-01-08] MEDS ORDERED: POTASSIUM CHLORIDE 20 MEQ/PKT PACKET PO ONE (09:30)
[2019-01-08 09:53] LABS: PLATELET COUNT (AUTO) 50 K/uL (130-430)
[2019-01-08 10:25] LABS: WHITE BLOOD COUNT (AUTO) 4.4 K/uL (4.8-10.8)
[2019-01-08 10:26] LABS: HEMATOCRIT 24.2 % (36-48); HEMOGLOBIN 7.9 g/dL (12.0-16.0); MEAN CORPUSCULAR HEMOGLOBIN 30 pg (27-31); MEAN CORPUSCULAR HGB CONC 33 % (32-36); MEAN CORPUSCULAR VOLUME 90 fL (79.0-98.0); RED BLOOD CELL COUNT(AUTO) 2.69 MIL/uL (4.2-6.2)
[2019-01-08 10:27] LABS: BASOPHILS % (AUTO) 0.2 % (0.0-2.0); EOSINOPHILS # (AUTO) 0.1 K/uL (0.0-0.4); EOSINOPHILS % (AUTO) 2.2 % (0.0-4.0); LYMPHOCYTES # (AUTO) 1.4 K/uL (1.0-5.5); LYMPHOCYTES % (AUTO) 32.6 % (20.5-51.5); MONOCYTES # (AUTO) 0.2 K/uL (0.0-1.0); NEUTROPHILS # (AUTO) 2.7 K/uL (1.8-7.7)
[2019-01-08 10:43] LABS: PLATELET COUNT (AUTO) 43 K/uL (130-430)
[2019-01-08] MEDS: HYDROmorphone 1 MG INJ. 1 MG/ML AMPUL IVP PRN (12:52)
[2019-01-08] MEDS: KCL 20 mEq in D5/0.45NS 1000mL 1,000 ML IV SCH ×2 (16:39→21:00)
[2019-01-08 18:11] LABS: HEMATOCRIT 26.3 % (36-48); HEMOGLOBIN 8.5 g/dL (12.0-16.0)
[2019-01-08] MEDS: ONDANSETRON HCL 4 MG/2 ML VIAL IVP PRN (18:30)
[2019-01-09] VITALS (24 sets, daily range): BP systolic 97–147
[2019-01-09] MEDS: HYDROmorphone 1 MG INJ. 1 MG/ML AMPUL IVP PRN ×3 (00:31→17:46)
[2019-01-09] MEDS: KCL 20 mEq in D5/0.45NS 1000mL 1,000 ML IV SCH ×2 (03:33→14:08)
[2019-01-09] MEDS: PANTOPRAZOLE SODIUM 40 MG in NS 50 ML IV SCH ×4 (03:57→20:48)
[2019-01-09] MEDS ORDERED: SUCRALFATE 1 GM TABLET PO ONE (09:45)
[2019-01-09 10:20] LABS: HEMOGLOBIN 8.1 g/dL (12.0-16.0); RED BLOOD CELL COUNT(AUTO) 2.78 MIL/uL (4.2-6.2); WHITE BLOOD COUNT (AUTO) 4.4 K/uL (4.8-10.8)
[2019-01-09 10:21] LABS: BASOPHILS % (AUTO) 0.3 % (0.0-2.0); EOSINOPHILS # (AUTO) 0.1 K/uL (0.0-0.4); EOSINOPHILS % (AUTO) 2.9 % (0.0-4.0); HEMATOCRIT 24.8 % (36-48); LYMPHOCYTES # (AUTO) 1.7 K/uL (1.0-5.5); LYMPHOCYTES % (AUTO) 39.1 % (20.5-51.5); MEAN CORPUSCULAR HEMOGLOBIN 29 pg (27-31); MEAN CORPUSCULAR HGB CONC 33 % (32-36); MEAN CORPUSCULAR VOLUME 89 fL (79.0-98.0); MONOCYTES # (AUTO) 0.2 K/uL (0.0-1.0); MONOCYTES % (AUTO) 5.5 % (1.7-9.3); NEUTROPHILS # (AUTO) 2.3 K/uL (1.8-7.7); NEUTROPHILS % (AUTO) 52.2 % (40.0-70.0); RED CELL DISTRIBUTION WIDTH 20.3 % (9.0-15.0)
[2019-01-09] MEDS: ONDANSETRON HCL 4 MG/2 ML VIAL IVP PRN ×2 (11:25→21:04)
[2019-01-09 11:30] LABS: PLATELET COUNT (AUTO) 54 K/uL (130-430)
[2019-01-09] MEDS ORDERED: LEVOTHYROXINE SODIUM 0.088 MG TABLET PO ONE (12:00)
[2019-01-09] MEDS: SUCRALFATE 1 GM TABLET PO SCH ×3 (14:08→20:48)
[2019-01-09 18:25] LABS: HEMATOCRIT 23.3 % (36-48); HEMOGLOBIN 7.6 g/dL (12.0-16.0); MEAN CORPUSCULAR HEMOGLOBIN 30 pg (27-31); MEAN CORPUSCULAR HGB CONC 33 % (32-36); MEAN CORPUSCULAR VOLUME 90 fL (79.0-98.0); RED BLOOD CELL COUNT(AUTO) 2.58 MIL/uL (4.2-6.2); RED CELL DISTRIBUTION WIDTH 20.3 % (9.0-15.0); WHITE BLOOD COUNT (AUTO) 4.2 K/uL (4.8-10.8)
[2019-01-09 18:30] LABS: PLATELET COUNT (AUTO) 45 K/uL (130-430)
[2019-01-09 18:31] LABS: BASOPHILS % (AUTO) 0.2 % (0.0-2.0); EOSINOPHILS # (AUTO) 0.1 K/uL (0.0-0.4); EOSINOPHILS % (AUTO) 2.4 % (0.0-4.0); LYMPHOCYTES # (AUTO) 1.5 K/uL (1.0-5.5); LYMPHOCYTES % (AUTO) 35.9 % (20.5-51.5); MONOCYTES # (AUTO) 0.3 K/uL (0.0-1.0); MONOCYTES % (AUTO) 6.2 % (1.7-9.3); NEUTROPHILS # (AUTO) 2.3 K/uL (1.8-7.7); NEUTROPHILS % (AUTO) 55.3 % (40.0-70.0)
[2019-01-10] VITALS (20 sets, daily range): BP systolic 85–143
[2019-01-10] MEDS: PANTOPRAZOLE SODIUM 40 MG in NS 50 ML IV SCH ×5 (01:38→22:28)
[2019-01-10] MEDS: HYDROmorphone 1 MG INJ. 1 MG/ML AMPUL IVP PRN (01:48)
[2019-01-10] MEDS: KCL 20 mEq in D5/0.45NS 1000mL 1,000 ML IV SCH ×3 (02:50→22:28)
[2019-01-10 05:23] LABS: WHITE BLOOD COUNT (AUTO) 5.8 K/uL (4.8-10.8)
[2019-01-10 05:24] LABS: BASOPHILS % (AUTO) 0.3 % (0.0-2.0); EOSINOPHILS % (AUTO) 2.7 % (0.0-4.0); HEMATOCRIT 32.6 % (36-48); HEMOGLOBIN 10.4 g/dL (12.0-16.0); LYMPHOCYTES % (AUTO) 26.4 % (20.5-51.5); MEAN CORPUSCULAR HEMOGLOBIN 30 pg (27-31); MEAN CORPUSCULAR HGB CONC 32 % (32-36); MEAN CORPUSCULAR VOLUME 93 fL (79.0-98.0); MONOCYTES % (AUTO) 6.8 % (1.7-9.3); NEUTROPHILS # (AUTO) 3.7 K/uL (1.8-7.7); NEUTROPHILS % (AUTO) 63.8 % (40.0-70.0); PLATELET COUNT (AUTO) 53 K/uL (130-430); RED BLOOD CELL COUNT(AUTO) 3.51 MIL/uL (4.2-6.2); RED CELL DISTRIBUTION WIDTH 20.8 % (9.0-15.0)
[2019-01-10 05:25] LABS: EOSINOPHILS # (AUTO) 0.2 K/uL (0.0-0.4); LYMPHOCYTES # (AUTO) 1.5 K/uL (1.0-5.5); MONOCYTES # (AUTO) 0.4 K/uL (0.0-1.0)
[2019-01-10] MEDS: LEVOTHYROXINE SODIUM 0.088 MG TABLET PO SCH (06:16)
[2019-01-10] MEDS ORDERED: POTASSIUM CHLORIDE 20 MEQ TAB.PRT.SR PO ONE (08:30)
[2019-01-10] MEDS: SUCRALFATE 1 GM TABLET PO SCH ×4 (10:59→20:15)
[2019-01-10] MEDS: ONDANSETRON HCL 4 MG/2 ML VIAL IVP PRN (12:09)
[2019-01-10] MEDS: LORazepam 2 MG/ML VIAL IM PRN (12:09)
[2019-01-10] MEDS: traZODone HCL 50 MG TABLET (DESYREL) PO SCH (20:15)
[2019-01-11 01:06] VITALS: BP_SYST 121
[2019-01-11] MEDS: PANTOPRAZOLE SODIUM 40 MG in NS 50 ML IV SCH ×5 (01:42→21:37)
[2019-01-11] MEDS: ONDANSETRON HCL 4 MG/2 ML VIAL IVP PRN ×4 (01:43→23:34)
[2019-01-11] MEDS: HYDROmorphone 1 MG INJ. 1 MG/ML AMPUL IVP PRN ×4 (01:43→23:35)
[2019-01-11] MEDS: LEVOTHYROXINE SODIUM 0.088 MG TABLET PO SCH (06:25)
[2019-01-11 06:48] LABS: ALANINE AMINOTRANSFERASE 37 U/L (12-78); ALBUMIN 1.9 g/dL (3.4-4.8); ANION GAP 5 (5-15); ASPARTATE AMINOTRANSFERASE 94 U/L (10-37); CHLORIDE 113 mmol/L (98-107); CREATININE 0.65 mg/dL (0.55-1.30); FREE T4 (FREE THYROXINE) 0.4 ng/dL (0.6-1.6); GLUCOSE 104 mg/dL (70-99); POTASSIUM 3.1 mmol/L (3.5-5.1); SODIUM SERUM 138 mmol/L (136-145); TOTAL BILIRUBIN 0.6 mg/dL (0.0-1.0); UREA NITROGEN, BLOOD 2 mg/dL (8-21)
[2019-01-11 07:05] LABS: CALCIUM 6.4 mg/dL (8.4-11.0)
[2019-01-11 07:15] LABS: HEMOGLOBIN 8.8 g/dL (12.0-16.0); RED BLOOD CELL COUNT(AUTO) 2.91 MIL/uL (4.2-6.2); WHITE BLOOD COUNT (AUTO) 7.8 K/uL (4.8-10.8)
[2019-01-11 07:16] LABS: BASOPHILS % (AUTO) 0.1 % (0.0-2.0); EOSINOPHILS # (AUTO) 0.1 K/uL (0.0-0.4); EOSINOPHILS % (AUTO) 0.9 % (0.0-4.0); HEMATOCRIT 27.1 % (36-48); LYMPHOCYTES # (AUTO) 1.7 K/uL (1.0-5.5); LYMPHOCYTES % (AUTO) 21.9 % (20.5-51.5); MEAN CORPUSCULAR HEMOGLOBIN 30 pg (27-31); MEAN CORPUSCULAR HGB CONC 32 % (32-36); MEAN CORPUSCULAR VOLUME 93 fL (79.0-98.0); MONOCYTES # (AUTO) 0.8 K/uL (0.0-1.0); MONOCYTES % (AUTO) 10.3 % (1.7-9.3); NEUTROPHILS # (AUTO) 5.2 K/uL (1.8-7.7); NEUTROPHILS % (AUTO) 66.8 % (40.0-70.0); RED CELL DISTRIBUTION WIDTH 20.6 % (9.0-15.0)
[2019-01-11 07:25] LABS: PLATELET COUNT (AUTO) 47 K/uL (130-430)
[2019-01-11] MEDS ORDERED: POTASSIUM CHLORIDE 20 MEQ TAB.PRT.SR PO ONE ×2 (07:45→14:45)
[2019-01-11 08:22] VITALS: BP_SYST 138
[2019-01-11] MEDS: SUCRALFATE 1 GM TABLET PO SCH ×4 (08:23→21:37)
[2019-01-11 11:23] VITALS: BP_SYST 127
[2019-01-11] MEDS: KCL 20 mEq in D5/0.45NS 1000mL 1,000 ML IV SCH ×2 (12:02→21:36)
[2019-01-11 16:30] VITALS: BP_SYST 125
[2019-01-11 17:35] VITALS: BP_SYST 125
[2019-01-11 20:30] VITALS: BP_SYST 133
[2019-01-11] MEDS: traZODone HCL 50 MG TABLET (DESYREL) PO SCH (21:37)
[2019-01-12] MEDS: PANTOPRAZOLE SODIUM 40 MG in NS 50 ML IV SCH ×5 (03:04→23:17)
[2019-01-12 03:32] VITALS: BP_SYST 122
[2019-01-12] MEDS: KCL 20 mEq in D5/0.45NS 1000mL 1,000 ML IV SCH ×2 (06:37→17:46)
[2019-01-12] MEDS: LEVOTHYROXINE SODIUM 0.088 MG TABLET PO SCH (06:37)
[2019-01-12 07:42] LABS: ALANINE AMINOTRANSFERASE 35 U/L (12-78); ALBUMIN 1.6 g/dL (3.4-4.8); ANION GAP 6 (5-15); ASPARTATE AMINOTRANSFERASE 67 U/L (10-37); CHLORIDE 109 mmol/L (98-107); CREATININE 0.66 mg/dL (0.55-1.30); GLUCOSE 114 mg/dL (70-99); POTASSIUM 3.9 mmol/L (3.5-5.1); SODIUM SERUM 134 mmol/L (136-145); TOTAL BILIRUBIN 0.5 mg/dL (0.0-1.0); UREA NITROGEN, BLOOD 2 mg/dL (8-21)
[2019-01-12 07:54] LABS: CALCIUM 6.3 mg/dL (8.4-11.0)
[2019-01-12 08:04] VITALS: BP_SYST 129
[2019-01-12] MEDS: SUCRALFATE 1 GM TABLET PO SCH ×4 (08:07→20:02)
[2019-01-12] MEDS: ONDANSETRON HCL 4 MG/2 ML VIAL IVP PRN ×2 (08:07→15:11)
[2019-01-12] MEDS: HYDROmorphone 1 MG INJ. 1 MG/ML AMPUL IVP PRN ×3 (08:15→20:03)
[2019-01-12 08:28] LABS: HEMATOCRIT 24.1 % (36-48); MEAN CORPUSCULAR VOLUME 90 fL (79.0-98.0); RED BLOOD CELL COUNT(AUTO) 2.66 MIL/uL (4.2-6.2); WHITE BLOOD COUNT (AUTO) 5.9 K/uL (4.8-10.8)
[2019-01-12 08:29] LABS: MEAN CORPUSCULAR HEMOGLOBIN 30 pg (27-31); MEAN CORPUSCULAR HGB CONC 33 % (32-36); PLATELET COUNT (AUTO) 60 K/uL (130-430); RED CELL DISTRIBUTION WIDTH 20.7 % (9.0-15.0)
[2019-01-12 08:30] LABS: LYMPHOCYTES % (AUTO) 23.2 % (20.5-51.5); MONOCYTES % (AUTO) 14.5 % (1.7-9.3)
[2019-01-12 08:31] LABS: BASOPHILS % (AUTO) 0.1 % (0.0-2.0); EOSINOPHILS # (AUTO) 0.1 K/uL (0.0-0.4); EOSINOPHILS % (AUTO) 1.9 % (0.0-4.0); LYMPHOCYTES # (AUTO) 1.4 K/uL (1.0-5.5); MONOCYTES # (AUTO) 0.9 K/uL (0.0-1.0); NEUTROPHILS # (AUTO) 3.5 K/uL (1.8-7.7)
[2019-01-12 12:17] LABS: NEUTROPHILS % (AUTO) 60.3 % (40.0-70.0)
[2019-01-12 13:58] VITALS: BP_SYST 147
[2019-01-12 16:41] VITALS: BP_SYST 128
[2019-01-12] MEDS: PEG 400/HYPROMELLOSE/GLYCERIN 15 ML DROPS OP PRN (17:52)
[2019-01-12 20:00] VITALS: BP_SYST 118
[2019-01-12] MEDS: traZODone HCL 50 MG TABLET (DESYREL) PO SCH (20:02)
[2019-01-13] MEDS: KCL 20 mEq in D5/0.45NS 1000mL 1,000 ML IV SCH ×3 (01:40→13:37)
[2019-01-13 02:56] VITALS: BP_SYST 131
[2019-01-13] MEDS: ONDANSETRON HCL 4 MG/2 ML VIAL IVP PRN ×4 (04:01→20:22)
[2019-01-13] MEDS: HYDROmorphone 1 MG INJ. 1 MG/ML AMPUL IVP PRN ×4 (04:02→20:22)
[2019-01-13] MEDS: PANTOPRAZOLE SODIUM 40 MG in NS 50 ML IV SCH ×5 (04:02→23:44)
[2019-01-13] MEDS: LEVOTHYROXINE SODIUM 0.088 MG TABLET PO SCH (06:14)
[2019-01-13 07:53] LABS: ANION GAP 8 (5-15); CHLORIDE 108 mmol/L (98-107); CREATININE 0.73 mg/dL (0.55-1.30); GLUCOSE 128 mg/dL (70-99); SODIUM SERUM 134 mmol/L (136-145); UREA NITROGEN, BLOOD 3 mg/dL (8-21)
[2019-01-13 08:19] LABS: CALCIUM 6.3 mg/dL (8.4-11.0)
[2019-01-13 08:37] LABS: HEMATOCRIT 26.3 % (36-48); HEMOGLOBIN 8.6 g/dL (12.0-16.0); RED BLOOD CELL COUNT(AUTO) 2.86 MIL/uL (4.2-6.2)
[2019-01-13 08:38] LABS: BASOPHILS % (AUTO) 0.2 % (0.0-2.0); EOSINOPHILS # (AUTO) 0.1 K/uL (0.0-0.4); LYMPHOCYTES # (AUTO) 0.9 K/uL (1.0-5.5); LYMPHOCYTES % (AUTO) 14.6 % (20.5-51.5); MEAN CORPUSCULAR HEMOGLOBIN 30 pg (27-31); MEAN CORPUSCULAR HGB CONC 33 % (32-36); MEAN CORPUSCULAR VOLUME 92 fL (79.0-98.0); MONOCYTES # (AUTO) 1.1 K/uL (0.0-1.0); MONOCYTES % (AUTO) 18.8 % (1.7-9.3); NEUTROPHILS # (AUTO) 3.9 K/uL (1.8-7.7); NEUTROPHILS % (AUTO) 64.4 % (40.0-70.0); PLATELET COUNT (AUTO) 101 K/uL (130-430); RED CELL DISTRIBUTION WIDTH 21.8 % (9.0-15.0)
[2019-01-13 08:39] VITALS: BP_SYST 151
[2019-01-13] MEDS: PEG 400/HYPROMELLOSE/GLYCERIN 15 ML DROPS OP PRN ×2 (08:42→16:08)
[2019-01-13] MEDS: SUCRALFATE 1 GM TABLET PO SCH ×4 (08:42→20:22)
[2019-01-13 12:31] VITALS: BP_SYST 148
[2019-01-13 15:42] VITALS: BP_SYST 134
[2019-01-13 20:00] VITALS: BP_SYST 115
[2019-01-13] MEDS: traZODone HCL 50 MG TABLET (DESYREL) PO SCH (20:21)
[2019-01-14 01:47] VITALS: BP_SYST 112
[2019-01-14] MEDS: KCL 20 mEq in D5/0.45NS 1000mL 1,000 ML IV SCH ×2 (04:28→14:22)
[2019-01-14] MEDS: PEG 400/HYPROMELLOSE/GLYCERIN 15 ML DROPS OP PRN (04:28)
[2019-01-14] MEDS: HYDROmorphone 1 MG INJ. 1 MG/ML AMPUL IVP PRN ×3 (04:29→18:16)
[2019-01-14] MEDS: ONDANSETRON HCL 4 MG/2 ML VIAL IVP PRN (04:29)
[2019-01-14] MEDS: PANTOPRAZOLE SODIUM 40 MG in NS 50 ML IV SCH ×4 (04:30→19:48)
[2019-01-14] MEDS: LEVOTHYROXINE SODIUM 0.088 MG TABLET PO SCH (06:00)
[2019-01-14 07:28] LABS: ANION GAP 11 (5-15); CHLORIDE 112 mmol/L (98-107); CREATININE 0.72 mg/dL (0.55-1.30); GLUCOSE 99 mg/dL (70-99); POTASSIUM 3.8 mmol/L (3.5-5.1); SODIUM SERUM 139 mmol/L (136-145); UREA NITROGEN, BLOOD 3 mg/dL (8-21)
[2019-01-14 07:52] LABS: CALCIUM 6.6 mg/dL (8.4-11.0)
[2019-01-14 08:00] VITALS: BP_SYST 121
[2019-01-14 08:20] LABS: BASOPHILS % (AUTO) 0.4 % (0.0-2.0); EOSINOPHILS % (AUTO) 2.9 % (0.0-4.0); HEMATOCRIT 24.2 % (36-48); HEMOGLOBIN 8.1 g/dL (12.0-16.0); LYMPHOCYTES # (AUTO) 1.6 K/uL (1.0-5.5); LYMPHOCYTES % (AUTO) 29.8 % (20.5-51.5); MEAN CORPUSCULAR HEMOGLOBIN 31 pg (27-31); MEAN CORPUSCULAR HGB CONC 33 % (32-36); MEAN CORPUSCULAR VOLUME 92 fL (79.0-98.0); MONOCYTES % (AUTO) 18.9 % (1.7-9.3); NEUTROPHILS # (AUTO) 2.6 K/uL (1.8-7.7); PLATELET COUNT (AUTO) 123 K/uL (130-430); RED BLOOD CELL COUNT(AUTO) 2.64 MIL/uL (4.2-6.2); WHITE BLOOD COUNT (AUTO) 5.4 K/uL (4.8-10.8)
[2019-01-14 08:21] LABS: EOSINOPHILS # (AUTO) 0.2 K/uL (0.0-0.4)
[2019-01-14] MEDS: SUCRALFATE 1 GM TABLET PO SCH ×4 (09:28→21:26)
[2019-01-14 12:16] VITALS: BP_SYST 133
[2019-01-14 16:49] VITALS: BP_SYST 128
[2019-01-14 20:20] VITALS: BP_SYST 129
[2019-01-14] MEDS: traZODone HCL 50 MG TABLET (DESYREL) PO SCH (21:26)
[2019-01-14 23:40] LABS: BILIRUBIN,URINE NEGATIVE (NEGATIVE); BLOOD, URINE NEGATIVE (NEGATIVE); CLARITY/URINE CLEAR (CLEAR); COLOR,URINE YELLOW (YELLOW); GLUCOSE,URINE NEGATIVE (NEGATIVE); KETONES,URINE NEGATIVE (NEGATIVE); LEUKOCYTE ESTERASE ,URINE 1+ (NEGATIVE); NITRITE, URINE NEGATIVE (NEGATIVE); PH,URINE 7.5 (5.0-8.0); PROTEIN URINE NEGATIVE (NEGATIVE); UROBILINOGEN,URINE 0.2 (0.2-1.0)
[2019-01-14 23:49] LABS: BACTERIA,URINE FEW /HPF (None Seen); RBC,URINE 0-3 /HPF (0-3)
[2019-01-15 00:26] VITALS: BP_SYST 121
[2019-01-15] MEDS: PANTOPRAZOLE SODIUM 40 MG in NS 50 ML IV SCH ×4 (00:51→16:47)
[2019-01-15] MEDS: KCL 20 mEq in D5/0.45NS 1000mL 1,000 ML IV SCH ×2 (00:52→11:56)
[2019-01-15] MEDS: ONDANSETRON HCL 4 MG/2 ML VIAL IVP PRN ×2 (01:38→09:35)
[2019-01-15] MEDS: HYDROmorphone 1 MG INJ. 1 MG/ML AMPUL IVP PRN ×2 (01:49→09:37)
[2019-01-15] MEDS: LEVOTHYROXINE SODIUM 0.088 MG TABLET PO SCH (06:28)
[2019-01-15 08:30] VITALS: BP_SYST 134
[2019-01-15] MEDS: SUCRALFATE 1 GM TABLET PO SCH ×4 (09:25→20:54)
[2019-01-15] MEDS: PEG 400/HYPROMELLOSE/GLYCERIN 15 ML DROPS OP PRN (09:35)
[2019-01-15 12:35] VITALS: BP_SYST 130
[2019-01-15 16:08] VITALS: BP_SYST 126
[2019-01-15 18:35] VITALS: BP_SYST 137
[2019-01-15] MEDS: traZODone HCL 50 MG TABLET (DESYREL) PO SCH (20:54)
[2019-01-15] MEDS ORDERED: NITROFURANTOIN MONOHYD/M-CRYST 100 MG CAPSULE PO SCH (21:00)
== END 2019-01-15 21:11 | DRG 377 ==
LOC: SED 14:19 → SIC 16:12 → STU 01-10 18:55 → SMU 01-13 14:31
PROVIDERS: ADMIT Family Medicine; ATTEND Internal Medicine
PROC: 30233N1 Transfusion of Nonautologous Red Blood Cells into Peripheral Vein, Percutaneous Approach (ICD-10-PCS; principal; 2019-01-06)
PROC: 0DB68ZX Excision of Stomach, Via Natural or Artificial Opening Endoscopic, Diagnostic (ICD-10-PCS; 2019-01-07)
PROC: 05HY33Z Insertion of Infusion Device into Upper Vein, Percutaneous Approach (ICD-10-PCS; 2019-01-07)
PROC: B54MZZA Ultrasonography of Right Upper Extremity Veins, Guidance (ICD-10-PCS; 2019-01-07)
DX: K28.4 Chronic or unspecified gastrojejunal ulcer with hemorrhage (principal); E43 Unspecified severe protein-calorie malnutrition; K20.9 Esophagitis, unspecified; K44.9 Diaphragmatic hernia without obstruction or gangrene; E03.9 Hypothyroidism, unspecified; F10.20 Alcohol dependence, uncomplicated; F32.9 Major depressive disorder, single episode, unspecified; F41.9 Anxiety disorder, unspecified; M06.9 Rheumatoid arthritis, unspecified; D50.0 Iron deficiency anemia secondary to blood loss (chronic); I95.9 Hypotension, unspecified; G47.00 Insomnia, unspecified; I10 Essential (primary) hypertension; M19.90 Unspecified osteoarthritis, unspecified site; K70.9 Alcoholic liver disease, unspecified; Z86.718 Personal history of other venous thrombosis and embolism; Z87.891 Personal history of nicotine dependence; Z98.84 Bariatric surgery status; Z79.01 Long term (current) use of anticoagulants; Z88.0 Allergy status to penicillin; Z88.1 Allergy status to other antibiotic agents; Z88.8 Allergy status to other drugs, medicaments and biological substances; Z91.048 Other nonmedicinal substance allergy status; Z88.2 Allergy status to sulfonamides; Z91.041 Radiographic dye allergy status; Z79.899 Other long term (current) drug therapy; Z22.322 Carrier or suspected carrier of Methicillin resistant Staphylococcus aureus
CPT/HCPCS: 36415; 43239; 71045; 78278-TC; 80048; 80053; 80307; 81000-TC; 82150-TC; 82550-TC; 83051; 83690-TC; 83735-TC; 83880; 84100-TC; 84439; 84443-TC; 84484; 85014-TC; 85018-TC; 85025; 85379; 85610-TC; 85730-TC; 86886; 86900; 86901; 86920; 87081; 88305; 88312; 88313; 93005; 93970; 96361; 96365; 96366; 96375; 97110-GP; 97116-GP; 97530-GP; 99285; A9560; C1751; C9113; G0482; J1170; J2060; J2175; J2250; J2270; J2354; J2405; J3411; J3475; J3490; J7030; J7040; J7050; P9021

== ENCOUNTER 2019-05-12 10:07 | Inpatient (IN) | payer OTHER, BC ==
[~2019-05-12] VITALS: Ht 144.8 cm; Wt 41.7 kg
[~2019-05-12 10:07] MED LIST changes: -APIX5TAB PO; -CYAN1TAB52 SL; -CYAN250014 SL; -IBUP-786 PO
--- NOTE | 2019-05-12 10:13 | NUR ---
Placed in room 5. Placed on cardiac sonographer, blood pressure machine and pulse oximeter. To gown for exam. Side rails up. Report given to Naz PATEL.
--- NOTE | 2019-05-12 10:13 | NUR ---
Note redd in ED - 05/12/19 at 1014 by TOBIN Placed in room 5. Placed on environmental monitoring specialist, blood pressure machine and pulse oximeter. To gown for exam. Side rails up. Report given to Naz PATEL.
[2019-05-12 10:14] VITALS: BP_SYST 119
--- NOTE | 2019-05-12 10:20 | NUR ---
Patient BIB ambulance w/ c/o n/v/d x 2 days. Patient stated that her diarrhea has green/black color. She also stated that she experiences arm and leg pain, 6/10. Patient in no signs of distress @ this time. Assisted patient to change to gown. Safety precautions enforced.
--- NOTE | 2019-05-12 10:30 | NUR ---
Dr. Duarte @ bedside for examination.
[2019-05-12] MEDS ORDERED: NACL 0.9% 1,000 ML IV ONE (10:45)
[2019-05-12] MEDS ORDERED: FAMOTIDINE PF 20 MG/2 ML VIAL IVP ONE (10:45)
[2019-05-12] MEDS ORDERED: ONDANSETRON HCL 4 MG/2 ML VIAL IVP ONE (10:45)
[2019-05-12 11:43] LABS: ANION GAP 18 (5-15); CHLORIDE 109 mmol/L (98-107); CREATININE 1.23 mg/dL (0.55-1.30); GLUCOSE 97 mg/dL (70-99); SODIUM SERUM 141 mmol/L (136-145); UREA NITROGEN, BLOOD 18 mg/dL (8-21)
[2019-05-12 11:45] LABS: POTASSIUM 2.8 mmol/L (3.5-5.1)
[2019-05-12] MEDS ORDERED: fentaNYL CITRATE/PF 100 MCG/2 ML AMP IVP ONE (11:45)
--- NOTE | 2019-05-12 11:48 | NUR ---
Potassium 2.8. Dr. Duarte notified. Orders to be received.
[2019-05-12 11:51] LABS: ALANINE AMINOTRANSFERASE 39 U/L (12-78); ALBUMIN 3.3 g/dL (3.4-4.8); ASPARTATE AMINOTRANSFERASE 70 U/L (10-37); TOTAL BILIRUBIN 1.2 mg/dL (0.0-1.0)
[2019-05-12] MEDS ORDERED: KCL 20 mEq in 0.45% NS 1000 mL 1,000 ML IV ONE (12:00)
--- NOTE | 2019-05-12 12:03 | NUR ---
Pt requested arm pad to keep L arm straight to prevent dislodgement of HERNAN. Arm pad applied, pt tolerated well. Cap refill <3 prior and post application.
--- NOTE | 2019-05-12 12:15 | NUR ---
Potassium 20mEq in 1/2 NS @ 100mL/hr initiated. Pt tolerated well. No adverse reactions noted. Warm blanket provided per pt request. Will continue to monitor.
--- NOTE | 2019-05-12 12:29 | NUR ---
Patient sleeping @ this time. No signs of distress noted. Safety precautions enforced.
[2019-05-12 12:42] LABS: BASOPHILS % (AUTO) 0.3 % (0.0-2.0); EOSINOPHILS % (AUTO) 0.2 % (0.0-4.0); HEMATOCRIT 39.1 % (36-48); HEMOGLOBIN 13.2 g/dL (12.0-16.0); LYMPHOCYTES # (AUTO) 1.9 K/uL (1.0-5.5); LYMPHOCYTES % (AUTO) 36.2 % (20.5-51.5); MEAN CORPUSCULAR HGB CONC 34 % (32-36); MEAN CORPUSCULAR VOLUME 109 fL (79.0-98.0); MONOCYTES # (AUTO) 0.3 K/uL (0.0-1.0); MONOCYTES % (AUTO) 4.9 % (1.7-9.3); NEUTROPHILS # (AUTO) 3.1 K/uL (1.8-7.7); NEUTROPHILS % (AUTO) 58.4 % (40.0-70.0); PLATELET COUNT (AUTO) 138 K/uL (130-430); RED BLOOD CELL COUNT(AUTO) 3.59 MIL/uL (4.2-6.2); RED CELL DISTRIBUTION WIDTH 17.6 % (9.0-15.0); WHITE BLOOD COUNT (AUTO) 5.3 K/uL (4.8-10.8)
[2019-05-12 12:46] LABS: MEAN CORPUSCULAR HEMOGLOBIN 37 pg (27-31)
[2019-05-12] MEDS ORDERED: IBUP-1969 PO (13:21)
[2019-05-12] MEDS ORDERED: AMLO2.5T2 PO (13:21)
[2019-05-12] MEDS ORDERED: LEVO88TA2 PO (13:21)
[2019-05-12] MEDS ORDERED: FAMO20TA8 PO (13:21)
[2019-05-12] MEDS ORDERED: L.RH1CAP PO (13:21)
--- NOTE | 2019-05-12 13:21 | NUR ---
Medication reconciliation completed with information provided by patient. Any prior medication reconciliation on file was reviewed and corrected. Patient unable to provide exact times when she takes her medications.
--- NOTE | 2019-05-12 13:22 | NUR ---
Patient belongings list completed.
[2019-05-12] MEDS ORDERED: FOLIC ACID 1 MG, THIAMINE HCL 100 MG, MAGNESIUM SULFATE 1 GM, MVI 10 ML in NACL 0.9% 1,... IV ONE (13:45)
[2019-05-12 14:39] LABS: BILIRUBIN,URINE 1+ (NEGATIVE); CLARITY/URINE HAZY (CLEAR); COLOR,URINE YELLOW (YELLOW); GLUCOSE,URINE NEGATIVE (NEGATIVE); KETONES,URINE 1+ (NEGATIVE); LEUKOCYTE ESTERASE ,URINE 3+ (NEGATIVE); NITRITE, URINE NEGATIVE (NEGATIVE); PROTEIN URINE 1+ (NEGATIVE); UROBILINOGEN,URINE 0.2 (0.2-1.0)
[2019-05-12 14:47] LABS: BLOOD, URINE TRACE (NEGATIVE)
[2019-05-12 14:54] LABS: BACTERIA,URINE MANY /HPF (None Seen); MUCUS,URINE 1+ /LPF (None Seen); WBC,URINE >100 /HPF (0-3)
[2019-05-12] MEDS ORDERED: FOLIC ACID 5 MG/ML VIAL IV ONE (15:00)
[2019-05-12] MEDS ORDERED: MVI IV ONE (15:00)
[2019-05-12] MEDS ORDERED: MAGNESIUM SULFATE/D5W 100 ML IV ONE (15:00)
[2019-05-12] MEDS ORDERED: THIAMINE HCL 100 MG/ML VIAL IM ONE (15:00)
[2019-05-12] MEDS ORDERED: NACL IV ONE (15:00)
--- NOTE | 2019-05-12 15:05 | NUR ---
Transfer to [facility] 111A via ACLS protocol. Licensed nurse present. IV present no signs or symptoms of infiltration. Patient in no signs of distress during transfer. Report given to oncoming nurse.
--- NOTE | 2019-05-12 15:10 | NUR ---
Admission Note Received patient from ER with diagnosis of Nausea and Vomiting. Initial Plan of Care discussed-patient verbalized understanding. Oriented to room, call light, pain management and safety.
[2019-05-12 15:48] VITALS: BP_SYST 117
[2019-05-12] MEDS: ONDANSETRON HCL 4 MG/2 ML VIAL IVP PRN ×2 (17:16→21:49)
--- NOTE | 2019-05-12 17:20 | NUR ---
NAUSEA/VOMITING Pt had nausea and vomiting once she ate a small amount of broth. Pt given Zofran as ordered. Cool ice pack placed to patient's neck, light turned down low to promote rest.
--- NOTE | 2019-05-12 18:05 | NUR ---
CLOSING NOTE Pt now resting quietly in bed with no further c/o nausea/vomiting, s/s resp distress, no c/o pain or discomfort. IVF infusing to LAC at ordered rate with no s/s infiltration to site. Patient waiting to see Dr. Ornelas. Needs met, call light within reach.
[2019-05-12 19:00] VITALS: BP_SYST 126
--- NOTE | 2019-05-12 19:15 | NUR ---
change of shift.pt.presents quiescent affect;calm,pt.receiving the administration;iv fluids/banana-bag.via peripheral line:location lt.forearm.general status stable.respiratory status stable;@room air.;unlabored.call light/telephone w/in the reach of the pt.
[2019-05-12 20:00] VITALS: BP_SYST 126
--- NOTE | 2019-05-12 20:00 | NUR ---
pt.assessed.v/s assessed:values w/in normal limits.pt.had c/o pain;i apprised the pt.that the attending md; is present; sdch:should assess the pt.will write order;re;medications.pt.assessed for cleanliness.pt.repositioned.i have assessed the iv access intact;patent;iv fluids/ banana -bag infusing.arm-board in place:lt.antecubital fossa;preventive measure.re;iv access.i have apprised the pt.that snacks/ beverages are available w/in the shift.pt.stated she cannot tolerable any food items@this time.call light/telephone placed w/in the reach of the pt.
[2019-05-12] MEDS ORDERED: CEFEPIME 1 GM in D5W 50 ML IV SCH (21:00)
--- NOTE | 2019-05-12 21:00 | NUR ---
no 2100pmedications. is present.assessing the pt.will write the orders;medications.
[2019-05-12] MEDS: HYDROmorphone 1 MG INJ. 1 MG/ML AMPUL IVP PRN (21:48)
--- NOTE | 2019-05-12 21:50 | NUR ---
pt.had requested medication;pain,nausea post 's assessment.i have administered dilaudid;1mg ivp i have administered zofran;4mg ivp;nausea.pt.assessed for cleanliness.pt.repositioned.faith light/telephone placed w/in the reach of the pt.
--- NOTE | 2019-05-12 22:30 | NUR ---
pharmacy telephoned.pharmacist had apprised me that the pt.presents allegry:pcn. had ordered cefipime; to apprise/clarify w/.
--- NOTE | 2019-05-12 23:00 | NUR ---
returned the page.[facility] pt.presents allergy:pcn;cefipime;abx; orderd. d/c the order:cefipime.and order:levaquin;750mg ivpb daily. Addendum: 05/13/19 at 0309 by Rufino Andrews RN error; had ordered gentamycin;abx;ivpb per pharmacy dose.@this hour not levaquin.
--- NOTE | 2019-05-12 23:30 | NUR ---
pharmacy telephoned.pharmacist;rx had apprised that the pt.presents allergy;gentamycin. telephoned i apprised the pt.presents allergy to gentamycin. ordered;levaquin:800mg abx;ivpb q-daily.
--- NOTE | 2019-05-13 | NUR ---
pt.assessed.v/s assessed;values w/in normal limits.note b/op values;low values.pt.asymptomatic.pt.assessed for cleanliness. pt.repositioned.general status stable.respiratory status stable;unlabored.call light/telephone placed w/in the reach of the pt. Addendum: 05/13/19 at 0314 by Rufino Andrews RN dr.kadhium harp.re;levbarbarauin order;pt.presents allergy to quinolines. to apprised .
[2019-05-13] MEDS: PANTOPRAZOLE SODIUM 40 MG/VIAL (PROTONIX) IVP SCH ×3 (00:21→20:32)
[2019-05-13 00:25] VITALS: BP_SYST 101
--- NOTE | 2019-05-13 01:00 | NUR ---
bogdan rubin returned the page.i apprised of the pt's allergy to quinolines;levaquin. has d/c order for levaquin.to assess the issue in the am;05/13/19.
--- NOTE | 2019-05-13 02:00 | NUR ---
pt.assessed.pt.assessed for cleanliness.pt.repositioned.iv access assessed;intact;patent;iv fluids infusing.maintance iv fluids/banana bag. general status stable.respiratory status stable;unlabored.call light/telephone placed w/in the reach of the pt.
--- NOTE | 2019-05-13 02:28 | NUR ---
CONSULT REASON FOR CONSULT: INTRACTABLE NAUSEA AND VOMITING PERSON I SPOKE WITH: CURT CONSULTING PHYSICIAN: DR. CHVAEZ (DR. MOLINA CLAY PUDDLER) INTERNET E COMMERCE SPECIALIST PHONE NUMBER: [phone] ORDERING PHYSICIAN: DR. ZAMORA
--- NOTE | 2019-05-13 04:00 | NUR ---
pt.assessed.pt.assessed for cleanliness.pt.repositioned.iv fluids infusing.iv access;intact;patent.general status stable. respiratory status stable;unlabored.call light/telephone placed w/in the reach of the pt.
--- NOTE | 2019-05-13 06:37 | NUR ---
pt.assessed.pt.presents quiescent affect;calm,awake.i have synchronized the tv programing to am news.pt.assessed for cleanliness. pt.repositioned.iv acces assessed ;intact;patent;iv fluids infusing.i have attempted to administer clear liquids food item;pt.refusing; pears initiation of nausea.pt.stated she is not nausea@this hour nor presents pain.i have held the synthroid;0700a dose.per pt's requests.general status stable.respiratory status stable@room air;unlabored.call light/telephone placed w/in then reach of the pt. pt.to be assessed per ;gi 05/13/19.
[2019-05-13] MEDS: LEVOTHYROXINE SODIUM 0.088 MG TABLET PO SCH (07:00)
--- NOTE | 2019-05-13 07:00 | NUR ---
Nutrition Update Ryan Scale 15 noted. Pt admitted for Nausea and vomiting Diet: clear liquid BMI: 19.9 kg/m2 RD to follow per nutrition care standards.
[2019-05-13 07:22] LABS: ANION GAP 12 (5-15); CALCIUM 7.4 mg/dL (8.4-11.0); CHLORIDE 114 mmol/L (98-107); CREATININE 1.03 mg/dL (0.55-1.30); GLUCOSE 87 mg/dL (70-99); SODIUM SERUM 140 mmol/L (136-145); UREA NITROGEN, BLOOD 15 mg/dL (8-21)
[2019-05-13 07:46] LABS: POTASSIUM 2.9 mmol/L (3.5-5.1)
[2019-05-13 08:00] VITALS: BP_SYST 111
--- NOTE | 2019-05-13 08:00 | NUR ---
initial notes rec patient awake alert with hob elevated. ivf infusing well on the l forearm. no infiltration noted. bed to the lowest position and side rails up and locked. call light within reached and knows when to call for assistance. denies pain. no sob noted.
[2019-05-13 08:38] LABS: BASOPHILS # (AUTO) 0.1 K/uL (0.0-0.2); BASOPHILS % (AUTO) 1.2 % (0.0-2.0); EOSINOPHILS % (AUTO) 0.4 % (0.0-4.0); HEMATOCRIT 34.5 % (36-48); HEMOGLOBIN 11.3 g/dL (12.0-16.0); LYMPHOCYTES # (AUTO) 2.8 K/uL (1.0-5.5); LYMPHOCYTES % (AUTO) 31.1 % (20.5-51.5); MEAN CORPUSCULAR HEMOGLOBIN 37 pg (27-31); MEAN CORPUSCULAR HGB CONC 33 % (32-36); MONOCYTES # (AUTO) 0.4 K/uL (0.0-1.0); NEUTROPHILS # (AUTO) 5.6 K/uL (1.8-7.7); NEUTROPHILS % (AUTO) 62.3 % (40.0-70.0); RED BLOOD CELL COUNT(AUTO) 3.09 MIL/uL (4.2-6.2); RED CELL DISTRIBUTION WIDTH 18.4 % (9.0-15.0); WHITE BLOOD COUNT (AUTO) 8.9 K/uL (4.8-10.8)
[2019-05-13 08:44] LABS: PLATELET COUNT (AUTO) 120 K/uL (130-430)
[2019-05-13 08:45] LABS: MEAN CORPUSCULAR VOLUME 112 fL (79.0-98.0)
[2019-05-13] MEDS: amLODIPine BESYLATE 5 MG TABLET PO SCH ×2 (09:00→10:14)
[2019-05-13] MEDS: LACTOBACILLUS RHAMNOSUS GG 1 CAP CAPSULE PO SCH ×2 (09:00→10:13)
--- NOTE | 2019-05-13 10:00 | NUR ---
rounds pt trying to get oob and was transferred to a room close to the nursing station.
[2019-05-13] MEDS ORDERED: POTASSIUM CHLORIDE 40 MEQ in NS 250 ML IV ONE (11:30)
[2019-05-13 11:33] VITALS: BP_SYST 96
--- NOTE | 2019-05-13 12:00 | NUR ---
rounds npo maintained for ultrasound of the abdomen. no sob noted. call light within reached.
[2019-05-13] MEDS: KCL 20 mEq in D5/0.45NS 1000mL 1,000 ML IV SCH (12:38)
[2019-05-13] MEDS: ONDANSETRON HCL 4 MG/2 ML VIAL IVP PRN (12:44)
[2019-05-13] MEDS: HYDROmorphone 1 MG INJ. 1 MG/ML AMPUL IVP PRN (13:39)
--- NOTE | 2019-05-13 14:43 | NUR ---
rounds seen by dr otto at bedside. ultrasound of the abdomen being done at bedside. no sob noted.
--- NOTE | 2019-05-13 14:58 | NUR ---
CONSULT: ID DR. FONSECA CALLED SPOKE TO [place] DIALED [phone] ZAMORA
[2019-05-13 15:29] VITALS: BP_SYST 110
--- NOTE | 2019-05-13 19:00 | NUR ---
closing notes pt is asleep , no osb noted. bed to the lowest position and side rails up and locked. pt close to the nurses station.
--- NOTE | 2019-05-13 19:15 | NUR ---
Opening notes Patient is asleep at this time. No signs of distress noted. Breathing even and unlabored. IV patent and intact, infusing fluids. No needs at this time. Call light with the patient, safety precautions in place.
[2019-05-13 20:00] VITALS: BP_SYST 104
--- NOTE | 2019-05-13 20:35 | NUR ---
Medications given. Educated the action and side effects of medications. Patient verbalized understanding and tolerated well. No signs of allergic reaction noted. Reminded patient she will have EGD tomorrow and will need to sign consent form. Patient refused to sign at this time and will sign in the morning. No other needs at this time. Call light with the patient. Safety precautions in place.
--- NOTE | 2019-05-13 23:00 | NUR ---
Hygiene care provided for patient. Patient repositioned to comfort. No other needs. Call light with the patient. Safety precautions in place.
[2019-05-13 23:42] VITALS: BP_SYST 116
[2019-05-14] VITALS (16 sets, daily range): BP systolic 81–127
--- NOTE | 2019-05-14 | NUR ---
NPO Patient NPO for EGD tomorrow. Patient verbalized understanding. Call light with the patient. safety precautions in place.
--- NOTE | 2019-05-14 02:04 | NUR ---
Sleeping No signs of distress noted. Breathing even and unlabored. IVF infusing well. Call light with the patient. Safety precautions in place.
[2019-05-14] MEDS: KCL 20 mEq in D5/0.45NS 1000mL 1,000 ML IV SCH (03:04)
[2019-05-14] MEDS: HYDROmorphone 1 MG INJ. 1 MG/ML AMPUL IVP PRN (03:16)
--- NOTE | 2019-05-14 04:00 | NUR ---
Hygiene care Patient placed on bed rinaldi. Patient urinated small amount of urine. Hygiene care provided. Patient repositioned to comfort. IVF infusing well. No needs. Call light with the patient. Safety precautions in place.
[2019-05-14] MEDS: LEVOTHYROXINE SODIUM 0.088 MG TABLET PO SCH (06:22)
--- NOTE | 2019-05-14 06:40 | NUR ---
Closing notes Patient resting in bed. No signs of distress noted. Breathing even and unlabored. IV patent and intact, infusing fluids. NPO status maintained. All needs met throughout the shift. Call light with the patient. Safety precautions in place. Will endorse care to day shift RN.
--- NOTE | 2019-05-14 07:53 | NUR ---
initial notes rec patient asleep but arousable to stimuli. ivf infusing well on the l forearm. no infiltration oted. resp easy and unlabored. no sob noted. bed to the lowest position and side rails up and locked. call light within reached and knows when to call for assistance. denies pain at this time. npo maintianed for egd today.
[2019-05-14] MEDS: PANTOPRAZOLE SODIUM 40 MG/VIAL (PROTONIX) IVP SCH ×2 (08:42→20:03)
[2019-05-14] MEDS: amLODIPine BESYLATE 5 MG TABLET PO SCH (09:00)
[2019-05-14] MEDS: LACTOBACILLUS RHAMNOSUS GG 1 CAP CAPSULE PO SCH (09:00)
[2019-05-14 10:29] LABS: BASOPHILS % (AUTO) 0.3 % (0.0-2.0); EOSINOPHILS # (AUTO) 0.1 K/uL (0.0-0.4); EOSINOPHILS % (AUTO) 0.6 % (0.0-4.0); HEMATOCRIT 38.1 % (36-48); HEMOGLOBIN 12.5 g/dL (12.0-16.0); LYMPHOCYTES # (AUTO) 2.1 K/uL (1.0-5.5); MEAN CORPUSCULAR HEMOGLOBIN 37 pg (27-31); MEAN CORPUSCULAR HGB CONC 33 % (32-36); MEAN CORPUSCULAR VOLUME 114 fL (79.0-98.0); MONOCYTES # (AUTO) 0.6 K/uL (0.0-1.0); MONOCYTES % (AUTO) 5.4 % (1.7-9.3); NEUTROPHILS # (AUTO) 7.8 K/uL (1.8-7.7); NEUTROPHILS % (AUTO) 73.7 % (40.0-70.0); PLATELET COUNT (AUTO) 129 K/uL (130-430); RED BLOOD CELL COUNT(AUTO) 3.36 MIL/uL (4.2-6.2); RED CELL DISTRIBUTION WIDTH 18.6 % (9.0-15.0); WHITE BLOOD COUNT (AUTO) 10.6 K/uL (4.8-10.8)
[2019-05-14 10:42] LABS: ANION GAP 13 (5-15); CALCIUM 7.2 mg/dL (8.4-11.0); CHLORIDE 116 mmol/L (98-107); CREATININE 1.35 mg/dL (0.55-1.30); GLUCOSE 161 mg/dL (70-99); LIPASE 138 U/L (73-393); POTASSIUM 3.8 mmol/L (3.5-5.1); SODIUM SERUM 141 mmol/L (136-145); UREA NITROGEN, BLOOD 12 mg/dL (8-21)
[2019-05-14 10:44] LABS: INR 0.9 (0.8-1.2); PROTHROMBIN TIME 9.6 SECS (9.5-12.5)
--- NOTE | 2019-05-14 11:02 | NUR ---
PATIENT CONDITION Patient was noted to have change in level of consciousness since this am. Patient was given Dialudid IV around 0300 am. Patient level of consciousness did not improve at time of report. V/S BP 81/45, VA 155, RR 12, o2 sat 90 % on room air. Blood sugar 150. Patient is cold to touch. called and spoke with Dr. Ornelas with order to transfer the patient to ICU. Called and SW TIARRA Giang about transfer, called and left message to patient's daughter Lily Song at tel [phone]
--- NOTE | 2019-05-14 11:13 | NUR ---
Cardiac consult called: for Dr. Oliver, regarding tachycardia/hypotension, ordered by Dr. Moreno, spoke with Debra.
--- NOTE | 2019-05-14 11:16 | NUR ---
Transfer to ICU Received report from endorsing RN. Pt is lethargic, responsive to shaking, unable to verbalize needs. IV in place with IVF, no infiltration noted. SBP in 90s, SR on monitor HR 80s.
--- NOTE | 2019-05-14 11:25 | NUR ---
CONSULT: PULMO. DR. PAUL CALLED SPOKE TO MODE DIALED [phone] ZAMORA
[2019-05-14] MEDS ORDERED: NALOXONE HCL 0.4 MG/ML AMP (NARCAN) IVP ONE (11:30)
--- NOTE | 2019-05-14 11:38 | NUR ---
BREATHING 11:25 am LATE ENTRY DUE TO PATIENT CARE patient resp 6/min. opens eyes for a brief moment and goes back to sleep again. called and sw Dr Velasco with orders. Narcan 0.4 mg iv given x 1 dose
--- NOTE | 2019-05-14 11:41 | NUR ---
Dietitian Recommendations *Recommend continuing NPO per MD orders. *Recommend swallow eval. *Recommend an alternate route of nutrition support if/when PO intake is not possible. Please see Nutritional Assessment for details. RADHA,RD
--- NOTE | 2019-05-14 11:48 | NUR ---
Patient's daughter Patient's daughter Lily called back and was notified of transfer
[2019-05-14] MEDS ORDERED: NALOXONE HCL 0.4 MG/ML AMP (NARCAN) ONE (11:49)
[2019-05-14] MEDS ORDERED: LEVOFLOXACIN 500 MG/D5W 100 ML IV SCH (12:30)
[2019-05-14] MEDS ORDERED: SODIUM BICARBONATE 8.4% VIAL 50 MEQ/50 ML VIAL INJ ONE (12:30)
--- NOTE | 2019-05-14 12:40 | NUR ---
LOC. RECEIVED ALERT, VERBALLY RESPONSIVE TO STIMULI, BREATHING DEEP, OPENS HER MOUTH SLIGHTLY TO LET AIR OUT, GENERALIZED WEAKNESS, O2 SATURATION IN THE LOW 90'S THEN DROPPED TO 82% AT 2 L O2, TITRATED O2 TO 4L, DR PAUL AWARE, SATURATION WENT IN THE HIGH 90'S.
[2019-05-14] MEDS ORDERED: SODIUM BICARBONATE 8.4% JECT 50 MEQ/50 ML SYRINGE ONE (12:43)
[2019-05-14] MEDS ORDERED: CEFEPIME 1 GM in D5W 50 ML IV ONE (13:30)
[2019-05-14] MEDS ORDERED: SODIUM BICARBONATE 8.4% JECT 50 MEQ/50 ML SYRINGE IV ONE (13:30)
[2019-05-14] MEDS: SODIUM BICARBONATE 8.4% JECT 100 MEQ in D5W 1,000 ML IV SCH (13:57)
--- NOTE | 2019-05-14 14:50 | NUR ---
TIME OUT. PT FOR PICC INSERTION, TIME OUT DONE PRIOR TO PROCEDURE.
--- NOTE | 2019-05-14 15:58 | NUR ---
DC PLANNING Spoke w friend/POWolfgang Hugo & pt @ bedside, per pt ok to speak w Oanh. Spoke w Oanh out of room, states brought Advanced Directive, in chart stating Oanh Padmaja is TIARRA. Per Oanh, pt lives alone & has caregiver thru [employer] that only comes out Fridays for 4hrs & [employer] that come out Wednesdays. Pt has Life Alert but does not use it. Pt is normally alert & oriented but is confused currently. Per Oanh she is going out of town next week & so are other friends who assist pt @ home & will not be back until next . Pt not safe to dc home alone, agreeable for SNF for short term placement. Would be agreeable w any SNF, except [facility], that Dr Allan goes to. Per Oanh pt also drinks alcohol but denies it. Updated Tiffayn RAMIREZ needs Open Developer Operator consult but not today pt confused, just transferred to ICU earlier.
--- NOTE | 2019-05-14 18:40 | NUR ---
HYGIENE. PT INCONTINENT OF BLADDER AND BOWEL, GOOD PERINEAL CARE RENDERED, MADE PT CLEAN AND COMFORTABLE. STOOL SAMPLE TAKEN AND SENT TO LAB FOR TEST.
[2019-05-14] MEDS ORDERED: DEXTROSE 10% IV SCH (19:30)
[2019-05-14] MEDS ORDERED: WATER IV SCH (19:30)
[2019-05-14] MEDS ORDERED: *TPN PER PHARMACY XX PRN (19:30)
--- NOTE | 2019-05-14 19:40 | NUR ---
PM Assessment Pt in bed, alert but confused at times. Pt SR on monitor. On 1L NC, saturating in the high 90s. VSS. No s/s of distress noted. Pt has EV PICC Line in place, LFA22g, and LFA 24g. Bicarb infusing @100cc/hr. No s/s of infiltration noted, sites C/D/I. Bed locked in lowest position, call light in reach, and safety precautions in place. Pt able to make needs known. Will continue to monitor.
[2019-05-14] MEDS: CEFEPIME 1 GM in D5W 50 ML IV SCH (20:07)
--- NOTE | 2019-05-14 21:05 | NUR ---
Called Spoke w/ Dr. Posey, made aware of Pt labs. No new orders received. Will continue to monitor.
[2019-05-15] VITALS (24 sets, daily range): BP systolic 90–157
--- NOTE | 2019-05-15 01:00 | NUR ---
called SPoke w/ Dr. Ornelas regarding pt BP. New orders received. Will carry out as ordered.
[2019-05-15] MEDS: ALBUMIN HUMAN 25% 50 ML IV SCH ×3 (01:28→08:30)
--- NOTE | 2019-05-15 01:40 | NUR ---
DAVISON CATH: #16 FR Davison catheter inserted with use of sterile technique. Bulb inflated with 10 cc sterile water. Immediate return of 50 cc cloudy yellow urine noted. Bedside drainage bag placed below level of bladder. Pt tolerated well. Will continue to monitor.
[2019-05-15] MEDS: SODIUM BICARBONATE 8.4% JECT 100 MEQ in D5W 1,000 ML IV SCH ×3 (02:09→21:17)
--- NOTE | 2019-05-15 04:20 | NUR ---
RN Rounds Pt in and out of sleep. Pt remains confused. VSS. No s/s of distress noted. Will continue to monitor.
[2019-05-15 05:36] LABS: BASOPHILS # (AUTO) 0.1 K/uL (0.0-0.2); BASOPHILS % (AUTO) 0.9 % (0.0-2.0); EOSINOPHILS # (AUTO) 0.1 K/uL (0.0-0.4); EOSINOPHILS % (AUTO) 1.4 % (0.0-4.0); HEMATOCRIT 26.5 % (36-48); LYMPHOCYTES # (AUTO) 1.4 K/uL (1.0-5.5); MEAN CORPUSCULAR HEMOGLOBIN 37 pg (27-31); MEAN CORPUSCULAR HGB CONC 34 % (32-36); MEAN CORPUSCULAR VOLUME 110 fL (79.0-98.0); MONOCYTES # (AUTO) 0.3 K/uL (0.0-1.0); MONOCYTES % (AUTO) 5.6 % (1.7-9.3); NEUTROPHILS % (AUTO) 68.1 % (40.0-70.0); PLATELET COUNT (AUTO) 66 K/uL (130-430); RED BLOOD CELL COUNT(AUTO) 2.42 MIL/uL (4.2-6.2); RED CELL DISTRIBUTION WIDTH 17.1 % (9.0-15.0); WHITE BLOOD COUNT (AUTO) 5.8 K/uL (4.8-10.8)
[2019-05-15 05:53] LABS: INR 1.1 (0.8-1.2); PROTHROMBIN TIME 10.9 SECS (9.5-12.5)
[2019-05-15 06:05] LABS: ALANINE AMINOTRANSFERASE 25 U/L (12-78); ALBUMIN 2.5 g/dL (3.4-4.8); ANION GAP 10 (5-15); ASPARTATE AMINOTRANSFERASE 56 U/L (10-37); CALCIUM 7.1 mg/dL (8.4-11.0); CHLORIDE 112 mmol/L (98-107); CHOLESTEROL 137 mg/dL (<200); CREATININE 1.18 mg/dL (0.55-1.30); GLUCOSE 159 mg/dL (70-99); HDL CHOLESTEROL 74 mg/dL (>55); LDL CHOLESTEROL 53 mg/dL (<100); SODIUM SERUM 141 mmol/L (136-145); TOTAL BILIRUBIN 0.7 mg/dL (0.0-1.0); TRIGLYCERIDES 112 mg/dL (30-150); UREA NITROGEN, BLOOD 9 mg/dL (8-21)
--- NOTE | 2019-05-15 06:30 | NUR ---
Closing Note Pt in bed asleep. Confused. SR shown on monitor. Pt on 2L NC. EV PICC Line in place. C/D/I. No s/s of infiltration noted. Pt has nino catheter draining cloudy yellow urine to gravity. Bed locked in lowest position, call light in reach, and safety precautions in place. Will endorse to oncoming RN.
[2019-05-15] MEDS: LEVOTHYROXINE SODIUM 0.088 MG TABLET PO SCH (07:00)
--- NOTE | 2019-05-15 07:13 | NUR ---
Endorsement Report given to oncoming RN at bedside via SBAR approach.
[2019-05-15 07:17] LABS: POTASSIUM 2.6 mmol/L (3.5-5.1)
[2019-05-15 07:18] LABS: PHOSPHORUS 0.4 mg/dL (2.7-4.5)
[2019-05-15 07:19] LABS: LIPASE 56 U/L (73-393); THYROID STIMULATING HORMONE 114.75 uIu/mL (0.34-4.82)
[2019-05-15] MEDS ORDERED: NS IV ONE (07:45)
[2019-05-15] MEDS ORDERED: K PHOS IV ONE (07:45)
[2019-05-15] MEDS ORDERED: KCL 20 mEq in 100 mL (PREMIX) 100 ML IV ONE ×3 (07:45→11:45)
--- NOTE | 2019-05-15 08:25 | NUR ---
Dr. Oliver in to see patient. New orders received.
--- NOTE | 2019-05-15 08:25 | NUR ---
Opening Note Received bedside report from endorsing RN for continuation of care. Received patient awake in bed, no signs or symptoms of acute distress noted. Bed locked in lowest position, bed alarm on, and call light within reach.
--- NOTE | 2019-05-15 08:27 | NUR ---
New consultations: Dr. Posey and Dr. Moi harp, spoke with exchange.
[2019-05-15] MEDS: PANTOPRAZOLE SODIUM 40 MG/VIAL (PROTONIX) IVP SCH ×2 (08:29→20:28)
[2019-05-15] MEDS: CEFEPIME 1 GM in D5W 50 ML IV SCH ×2 (08:29→20:28)
[2019-05-15] MEDS: LACTOBACILLUS RHAMNOSUS GG 1 CAP CAPSULE PO SCH (08:30)
[2019-05-15] MEDS ORDERED: LEVOFLOXACIN 250 MG/D5W 50 ML IV SCH (09:00)
--- NOTE | 2019-05-15 11:05 | NUR ---
Dr. Roper in to see patient. New orders received.
--- NOTE | 2019-05-15 11:06 | NUR ---
Dr. Posey in to see patient. No new orders.
[2019-05-15] MEDS ORDERED: KETOROLAC TROMETHAMINE 15 MG VIAL IVP PRN (11:15)
[2019-05-15] MEDS ORDERED: MAGNESIUM SULFATE 50 ML IV ONE (11:15)
[2019-05-15 11:39] LABS: BASOPHILS % (AUTO) 0.2 % (0.0-2.0); EOSINOPHILS # (AUTO) 0.1 K/uL (0.0-0.4); EOSINOPHILS % (AUTO) 1.2 % (0.0-4.0); HEMATOCRIT 25.9 % (36-48); HEMOGLOBIN 8.7 g/dL (12.0-16.0); LYMPHOCYTES # (AUTO) 1.4 K/uL (1.0-5.5); LYMPHOCYTES % (AUTO) 23.7 % (20.5-51.5); MEAN CORPUSCULAR HEMOGLOBIN 37 pg (27-31); MEAN CORPUSCULAR HGB CONC 34 % (32-36); MEAN CORPUSCULAR VOLUME 110 fL (79.0-98.0); MONOCYTES # (AUTO) 0.4 K/uL (0.0-1.0); MONOCYTES % (AUTO) 6.2 % (1.7-9.3); NEUTROPHILS % (AUTO) 68.7 % (40.0-70.0); PLATELET COUNT (AUTO) 81 K/uL (130-430); RED BLOOD CELL COUNT(AUTO) 2.36 MIL/uL (4.2-6.2); RED CELL DISTRIBUTION WIDTH 17.2 % (9.0-15.0); WHITE BLOOD COUNT (AUTO) 5.8 K/uL (4.8-10.8)
[2019-05-15] MEDS ORDERED: LORazepam 2 MG/ML VIAL IM PRN (11:45)
--- NOTE | 2019-05-15 12:00 | NUR ---
Wound Care Wound care performed per guidelines and photos taken. No signs or symptoms of acute distress noted.
[2019-05-15] MEDS: LORazepam 2 MG/ML VIAL IVP PRN ×2 (12:06→21:17)
--- NOTE | 2019-05-15 12:50 | NUR ---
Nutrition F/U Nutrition Support Notification received to start TPN 05/14/19. RD reviewed pt's current EMR including diet Hx, physician notes, nursing notes, pertinent labs/meds/procedures, care trends and care activity. Current Diet Order: Full liquid diet + D50% AA8.5% at 25ml/hr, IL 20% at 5ml/hr via Central line. TPN regimen provides: 854 kcal, 26 gm protein and GIR 2.5gm CHO/kg/min Which meets: 58% of upper end of estimated calorie needs and 52% of lower end of estimated protein needs. Subjective information: RD received notification to start TPN. Pt w/ PICC line, on NPO this morning, now on Full liquid diet for lunch. RN stated that Dr. Roper ordered the Full liquid diet earlier but pt is pending EGD and full liquid diet was not provided to pt as of 1253. RD s/w pharmD Bach earlier today (05/15/19 2989) re: rec, pharmD noted and will utilize rec for tomorrow's formulation. Pt appears to be more awake now and complained of feeling hungry. Current PO intake: N/A Estimated Energy Expenditure (kcals/day) 2069-8363 kcal/day (30-35 kcal/kg CBW for wt gain promotion) Estimated Protein Required (g/day) 50-63 gm/day (1.2-1.5 gm/kg CBW for Geriatric maintenance) Estimated Fluid Required (l/day) 1.1 L/day (25ml/kg CBW for Geriatric maintenance) Problem/Etiology/Signs/Symptoms Inadequate nutrient intake r/t dysphagia AEB pt's diagnosis of dysphagia and negligible PO intake. (*ongoing) Expected Outcomes/Goals Monitor advancement of diet, appetite and PO intake w/ goal of pt meeting at least 75% of estimated nutritional needs, labs trending WNL, normal GI function, skin integrity/wt maintenance. Dietitian Recommendations *Recommend continuing Full liquid diet per MD orders. *Recommend supplemental nutrition support: D40% AA 8.5% at 45ml/hr (goal rate), IL20% at 5ml/hr via Central line Provides: 1398 kcal, 46 gm protein and GIR 3.6gm CHO/kg/min Meets: 95% of upper end of estimated calorie needs and 92% of lower end of estimated protein needs. Follow Up High Risk: F/U in 2-3days
--- NOTE | 2019-05-15 13:22 | NUR ---
Dietitian Recommendations *Recommend continuing Full liquid diet per MD orders. *Recommend supplemental nutrition support: D40% AA 8.5% at 45ml/hr (goal rate), IL20% at 5ml/hr via Central line Provides: 1398 kcal, 46 gm protein and GIR 3.6gm CHO/kg/min Meets: 95% of upper end of estimated calorie needs and 92% of lower end of estimated protein needs. Please see Nutrition F/U note for details. LINDA GARCIA Addendum: 05/15/19 at [address] LINDA post/taina negro for TPN rec. 05/15/19 0950.
--- NOTE | 2019-05-15 15:00 | NUR ---
CHG CHG bath performed and bed linens changed. No signs or symptoms of acute distress noted. Patient tolerated well with minimal discomfort.
--- NOTE | 2019-05-15 15:42 | NUR ---
SS Note: COOK BOAT attempted to meet with patient for assessment and DCP. Pt is currently confused, and in pain. SS will follow-up.
--- NOTE | 2019-05-15 15:59 | NUR ---
Dr. Prater at bedside examining patient. New orders received.
[2019-05-15] MEDS ORDERED: LEVOTHYROXINE SODIUM 0.1 MG VIAL IVP ONE (16:00)
[2019-05-15] MEDS ORDERED: MIDAZOLAM HCL 5 MG/5 ML VIAL ONE (16:17)
[2019-05-15] MEDS ORDERED: fentaNYL CITRATE/PF 100 MCG/2 ML AMP ONE (16:18)
[2019-05-15] MEDS ORDERED: SIMETHICONE 40 MG/0.6 ML ML ONE (16:43)
--- NOTE | 2019-05-15 16:53 | NUR ---
EGD done at bedside with Dr. Mesa. No moderate sedation used. Pt tolerated well. Provided suction.
--- NOTE | 2019-05-15 16:53 | NUR ---
EGD being performed at bedside by Dr. Mesa.
[2019-05-15] MEDS: FAT EMULSIONS 250 ML IV SCH (17:25)
[2019-05-15] MEDS ORDERED: DEXTROSE 50% JECT 50 ML DISP.SYRIN IVP PRN (17:30)
[2019-05-15] MEDS: INSULIN REGULAR, HUMAN 100 UNITS/ML, 10 ML VIAL (humuLIN R) SUBCUT PRN (17:42)
[2019-05-15] MEDS ORDERED: SODIUM ACETATE IV SCH ×9 (18:00)
[2019-05-15] MEDS ORDERED: K PHOS IV SCH ×9 (18:00)
[2019-05-15] MEDS ORDERED: TPN CENTRAL IV SCH ×9 (18:00)
[2019-05-15] MEDS ORDERED: [UNRECOGNIZED DRUG - OTHER] IV SCH ×9 (18:00)
[2019-05-15] MEDS ORDERED: POTASSIUM ACETATE IV SCH ×9 (18:00)
--- NOTE | 2019-05-15 18:45 | NUR ---
Dr. Barcenasium in to see patient. No new orders.
--- NOTE | 2019-05-15 19:16 | NUR ---
Endorsement Endorsed bedside report to oncoming RN using SBAR approach for continuation of care.
--- NOTE | 2019-05-15 19:25 | NUR ---
PM SHIFT ASSESSMENT Pt is lethargic/confused. Pt on RA, RR even and unlabored. SR noted on monitor. Skin warm and dry. PICC line to EV with IVF. Watson catheter in place and draining to gravity. Safety precautions in place, call light within reach. Will continue to monitor.
[2019-05-15] MEDS ORDERED: MUPIROCIN 2% TOPICAL OINTMENT 22 GM TP SCH (21:00)
[2019-05-16] VITALS (24 sets, daily range): BP systolic 92–165
--- NOTE | 2019-05-16 02:05 | NUR ---
Pt resting in bed. VSS. Will continue to monitor.
[2019-05-16 05:35] LABS: BASOPHILS % (AUTO) 0.2 % (0.0-2.0); EOSINOPHILS # (AUTO) 0.1 K/uL (0.0-0.4); EOSINOPHILS % (AUTO) 1.8 % (0.0-4.0); HEMATOCRIT 27.2 % (36-48); HEMOGLOBIN 9.3 g/dL (12.0-16.0); LYMPHOCYTES # (AUTO) 1.4 K/uL (1.0-5.5); LYMPHOCYTES % (AUTO) 21.3 % (20.5-51.5); MEAN CORPUSCULAR HEMOGLOBIN 38 pg (27-31); MEAN CORPUSCULAR HGB CONC 34 % (32-36); MEAN CORPUSCULAR VOLUME 109 fL (79.0-98.0); MONOCYTES # (AUTO) 0.5 K/uL (0.0-1.0); MONOCYTES % (AUTO) 6.7 % (1.7-9.3); NEUTROPHILS # (AUTO) 4.7 K/uL (1.8-7.7); PLATELET COUNT (AUTO) 77 K/uL (130-430); RED BLOOD CELL COUNT(AUTO) 2.49 MIL/uL (4.2-6.2); RED CELL DISTRIBUTION WIDTH 17.4 % (9.0-15.0); WHITE BLOOD COUNT (AUTO) 6.7 K/uL (4.8-10.8)
[2019-05-16 05:53] LABS: ALANINE AMINOTRANSFERASE 32 U/L (12-78); ALBUMIN 2.6 g/dL (3.4-4.8); ANION GAP 12 (5-15); ASPARTATE AMINOTRANSFERASE 87 U/L (10-37); CHLORIDE 111 mmol/L (98-107); CREATININE 0.99 mg/dL (0.55-1.30); GLUCOSE 146 mg/dL (70-99); POTASSIUM 3.2 mmol/L (3.5-5.1); SODIUM SERUM 148 mmol/L (136-145); TOTAL BILIRUBIN 0.7 mg/dL (0.0-1.0); UREA NITROGEN, BLOOD 5 mg/dL (8-21)
[2019-05-16 06:01] LABS: CALCIUM 6.9 mg/dL (8.4-11.0)
[2019-05-16] MEDS ORDERED: LEVOTHYROXINE SODIUM 0.1 MG VIAL IVP ONE (06:39)
[2019-05-16] MEDS: LEVOTHYROXINE SODIUM 0.1 MG VIAL IVP SCH (06:52)
--- NOTE | 2019-05-16 07:25 | NUR ---
ENDORSEMENT Pt care endorsed to AMANDA Trevizo using nursing SBAR.
[2019-05-16] MEDS: PANTOPRAZOLE SODIUM 40 MG/VIAL (PROTONIX) IVP SCH ×2 (08:26→20:15)
--- NOTE | 2019-05-16 08:26 | NUR ---
Dr. Oliver at bedside examining patient. New orders received.
[2019-05-16] MEDS: MUPIROCIN 2% TOPICAL OINTMENT 22 GM TP SCH ×2 (08:27→20:16)
[2019-05-16] MEDS: CEFEPIME 1 GM in D5W 50 ML IV SCH ×2 (08:27→20:15)
[2019-05-16] MEDS: LACTOBACILLUS RHAMNOSUS GG 1 CAP CAPSULE PO SCH (08:27)
--- NOTE | 2019-05-16 10:59 | NUR ---
Dr. Posey in to see patient. New orders received.
[2019-05-16] MEDS: INSULIN REGULAR, HUMAN 100 UNITS/ML, 10 ML VIAL (humuLIN R) SUBCUT PRN (12:57)
--- NOTE | 2019-05-16 13:53 | NUR ---
Telephone Exchange Operator Follow-Up ICU Assessment/ETOH: HOUSING CASE MANAGER attempted to meet with client for ICU Assessment/ETOH. Pt. remains confused, speech is difficult to understand. HOUSING CASE MANAGER consulted with RN Pt. is possibly w/d ( ETOH DT). SS will continue to follow up when client is more appropriate/coherent for assessment.
--- NOTE | 2019-05-16 14:37 | NUR ---
Dr. Prater at bedside examining patient. New orders received.
--- NOTE | 2019-05-16 15:08 | NUR ---
Dr. Barcenasium in to see patient. No new orders.
[2019-05-16] MEDS: LACTULOSE 20 GM/30 ML UDC PO SCH ×2 (15:10→20:15)
--- NOTE | 2019-05-16 15:25 | NUR ---
Dr. Roper at bedside examining patient. New orders received.
[2019-05-16] MEDS ORDERED: K PHOS 15 MM in NS 250 ML IV ONE (15:30)
[2019-05-16] MEDS: FAT EMULSIONS 250 ML IV SCH (17:44)
[2019-05-16] MEDS ORDERED: [UNRECOGNIZED DRUG - OTHER] IV SCH ×8 (18:00)
[2019-05-16] MEDS ORDERED: TPN CENTRAL IV SCH ×8 (18:00)
[2019-05-16] MEDS ORDERED: K PHOS IV SCH ×8 (18:00)
[2019-05-16] MEDS ORDERED: POTASSIUM ACETATE IV SCH ×8 (18:00)
--- NOTE | 2019-05-16 18:00 | NUR ---
CHG/BM Patient had large loose BM. Pericare performed. Patient cleaned, turned, and repositioned. CHG bath given. No signs or symptoms of acute distress noted. Patient tolerated well.
--- NOTE | 2019-05-16 19:10 | NUR ---
PM SHIFT ASSESSMENT Pt is awake but confused. Pt on RA, RR even and unlabored. SR noted on monitor. Skin warm and dry. PICC line to EV with IVF. Watson catheter in place and draining to gravity. Safety precautions in place, call light within reach. Will continue to monitor.
--- NOTE | 2019-05-16 19:15 | NUR ---
Endorsement Endorsed bedside report to Shannan PATEL using SBAR approach for continuation of care.
--- NOTE | 2019-05-16 22:15 | NUR ---
Pt had large loose bowel movement after lactulose given. Pt care given and tolerated well. Will continue to monitor.
[2019-05-17] VITALS (19 sets, daily range): BP systolic 94–141
[2019-05-17 05:35] LABS: BASOPHILS % (AUTO) 0.6 % (0.0-2.0); EOSINOPHILS # (AUTO) 0.1 K/uL (0.0-0.4); EOSINOPHILS % (AUTO) 2.1 % (0.0-4.0); HEMATOCRIT 27.5 % (36-48); HEMOGLOBIN 9.4 g/dL (12.0-16.0); LYMPHOCYTES # (AUTO) 1.3 K/uL (1.0-5.5); LYMPHOCYTES % (AUTO) 25.1 % (20.5-51.5); MEAN CORPUSCULAR HEMOGLOBIN 37 pg (27-31); MEAN CORPUSCULAR HGB CONC 34 % (32-36); MEAN CORPUSCULAR VOLUME 109 fL (79.0-98.0); MONOCYTES # (AUTO) 0.6 K/uL (0.0-1.0); MONOCYTES % (AUTO) 10.5 % (1.7-9.3); NEUTROPHILS # (AUTO) 3.3 K/uL (1.8-7.7); NEUTROPHILS % (AUTO) 61.7 % (40.0-70.0); PLATELET COUNT (AUTO) 72 K/uL (130-430); RED BLOOD CELL COUNT(AUTO) 2.52 MIL/uL (4.2-6.2); RED CELL DISTRIBUTION WIDTH 17.2 % (9.0-15.0); WHITE BLOOD COUNT (AUTO) 5.3 K/uL (4.8-10.8)
[2019-05-17 06:22] LABS: ALANINE AMINOTRANSFERASE 32 U/L (12-78); ALBUMIN 2.3 g/dL (3.4-4.8); ANION GAP 6 (5-15); ASPARTATE AMINOTRANSFERASE 72 U/L (10-37); CHLORIDE 110 mmol/L (98-107); CREATININE 0.89 mg/dL (0.55-1.30); FREE T4 (FREE THYROXINE) 0.5 ng/dL (0.6-1.6); GLUCOSE 122 mg/dL (70-99); PHOSPHORUS 2.8 mg/dL (2.7-4.5); SODIUM SERUM 143 mmol/L (136-145); TOTAL BILIRUBIN 0.5 mg/dL (0.0-1.0); UREA NITROGEN, BLOOD 7 mg/dL (8-21)
[2019-05-17] MEDS: LEVOTHYROXINE SODIUM 0.1 MG VIAL IVP SCH (06:23)
[2019-05-17 06:40] LABS: CALCIUM 6.6 mg/dL (8.4-11.0)
--- NOTE | 2019-05-17 07:25 | NUR ---
ENDORSEMENT Pt care endorsed to AMANDA Mitchell using nursing SBAR.
--- NOTE | 2019-05-17 07:32 | NUR ---
OPENING NOTE: RECEIVED REPORT FROM NOC RNALEXANDRA. PATIENT LAYING IN BED WITH HOB ELEVATED, AWAKE. PATIENT IS ON ROOM AIR AND SATURATING WITH NORMAL LIMITS. NO ACUTE SIGNS OF RESP DISTRESS, NO SOB. BREATHING EVEN MYA UNLABORED. NOTED PICC LINE AND DRESSING CLEAN DRY AND INTACT. NOTED DAVISON AND POSITIONED TO DRAIN TOWARDS GRAVITY. BED AT LOWEST POSITION, CALL LIGHT IN REACH, SIDE RAILX2. WILL CONTINUE TO MONITOR.
[2019-05-17] MEDS: LACTULOSE 20 GM/30 ML UDC PO SCH ×4 (08:26→21:45)
[2019-05-17] MEDS: PANTOPRAZOLE SODIUM 40 MG/VIAL (PROTONIX) IVP SCH ×2 (08:26→21:45)
[2019-05-17] MEDS: LACTOBACILLUS RHAMNOSUS GG 1 CAP CAPSULE PO SCH (08:27)
[2019-05-17] MEDS: MUPIROCIN 2% TOPICAL OINTMENT 22 GM TP SCH ×2 (08:27→21:46)
[2019-05-17] MEDS: CEFEPIME 1 GM in D5W 50 ML IV SCH ×2 (08:27→21:46)
[2019-05-17] MEDS: ONDANSETRON HCL 4 MG/2 ML VIAL IVP PRN ×2 (08:45→15:49)
--- NOTE | 2019-05-17 13:35 | NUR ---
Nutrition F/U RD reviewed pt's current EMR including diet Hx, physician notes, nursing notes, pertinent labs/meds/procedures, care trends and care activity. Primary Dx: N/V Current Diet Order: Mechanical soft diet + D40% AA8.5% at 35ml/hr, Il20% at 5ml/hr via central line TPN regimen provides: 955 kcal, 36 gm protein and GIR 2.8 gm CHO/kg/min Which meets: 76% of lower end of estimated calorie needs and 72% of lower end of estimated protein needs. Subjective information: Pt seen resting in bed, awake but appears w/ poor concentration. Pt stated that she was able to tolerate the milk and fruit juice served for breakfast this morning. Pt c/o nausea, but no vomiting. Last BM 05/17/19. Per RN report, pt only ate 20% of breakfast. Bed scale weight: 116.8 lb 05/17. Per EMR, pharmD have TPN formulation set to goal rate for next delivery and to scheduled to start tonight at 6pm. Current PO intake: 20% of breakfast Estimated Energy Expenditure (kcals/day) 6266-9928 kcal/day (30-35 kcal/kg CBW for wt gain promotion) Estimated Protein Required (g/day) 50-63 gm/day (1.2-1.5 gm/kg CBW for Geriatric maintenance) Estimated Fluid Required (l/day) 1.1 L/day (25ml/kg CBW for Geriatric maintenance) Problem/Etiology/Signs/Symptoms Inadequate nutrient intake r/t dysphagia AEB pt's diagnosis of dysphagia and negligible PO intake. (*no longer applicable) Inadequate TPN intake r/t current infusion rate AEB TPN intake of protein not meeting 75% of estimated needs. (*new) Expected Outcomes/Goals Monitor TPN intake, appetite and PO intake w/ goal of pt meeting at least 75% of estimated nutritional needs, labs trending WNL, normal GI function, skin integrity/wt maintenance. Dietitian Recommendations *Recommend continuing: Mechanical Soft diet per MD orders. *Recommend continuing: D40% AA 8.5% at 45ml/hr (goal rate), IL20% at 5ml/hr via Central line Provides: 1398 kcal, 46 gm protein and GIR 3.6gm CHO/kg/min Meets: 95% of upper end of estimated calorie needs and 92% of lower end of estimated protein needs. * May titrate TPN, once PO intake meets at least 50% of nutritional needs. Follow Up High Risk: F/U in 2-3days
--- NOTE | 2019-05-17 13:44 | NUR ---
Dietitian Recommendations *Recommend continuing: Mechanical Soft diet per MD orders. *Recommend continuing: D40% AA 8.5% at 45ml/hr (goal rate), IL20% at 5ml/hr via Central line Provides: 1398 kcal, 46 gm protein and GIR 3.6gm CHO/kg/min Meets: 95% of upper end of estimated calorie needs and 92% of lower end of estimated protein needs. * May titrate TPN, once PO intake meets at least 50% of nutritional needs. Please see Nutrition F/U note for details LINDA GARCIA
--- NOTE | 2019-05-17 13:45 | NUR ---
[facility] CATH D/C: [facility] CATH D/C. RECEIVED 10ML OUT. PATIENT TOLERATED WELL, DENIES DISCOMFORT/PAIN. NOTED 275ML OF CLEAR YELLOW URINE. WILL CONTINUE TO MONITOR.
--- NOTE | 2019-05-17 15:30 | NUR ---
PT TRANSFERRED TO TELEMTRY: PATIENT TRANSFERRED TO TELEMTRY. REPORT GIVEN TO RECEIVING RN, SILVANA. PATIENT AWAKE AND ALERT, VERBALLY RESPONSIVE WITH CLEAR SPEECH. PATIENT IS ON ROOM AIR AND SATURATING AT 98% O2. PICC LINE INTACT AND PATENT, NO REDNESS/SWELLING/PAIN TO SITE. ENDORSED PLAN OF CARE TO SILVANA, ALL QUESTIONS ANSWERED.
--- NOTE | 2019-05-17 15:30 | NUR ---
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
--- NOTE | 2019-05-17 16:15 | NUR ---
Able to urinate with out burning sensation ,perineal care given , no sign of pressure sore, able to turn side to side.
[2019-05-17] MEDS: FAT EMULSIONS 250 ML IV SCH (17:46)
[2019-05-17] MEDS: K PHOS IV SCH ×8 (17:48)
[2019-05-17] MEDS: POTASSIUM ACETATE IV SCH ×8 (17:48)
[2019-05-17] MEDS: [UNRECOGNIZED DRUG - OTHER] IV SCH ×8 (17:48)
[2019-05-17] MEDS: TPN CENTRAL IV SCH ×8 (17:48)
--- NOTE | 2019-05-17 18:20 | NUR ---
GI/SKIN CARE Patient had semi loose stool brown color moderate amount , wash with mild soap/water , dry with damp paper towel, skin cream barrier applied ,patient able to turn with minimum assist., bilateral heel supported by pillow to avoid pressure sore.,needs attended.
--- NOTE | 2019-05-17 19:30 | NUR ---
initial notes: pt is awake, alert,oriented x 3. no complain of pain. no sob, not distress. stable. pt has ongoing tpn at 55cc/hr and lipids at 5cc/hr infusing to right picc line- intact and patent. bedrest. no skin breakdown at the back. pt has skin tear to left forearm and dry scabs to right forearm.pt had bm, clean and change chux. discuss to pt plan of care. medication and safety. instructed pt to call for assistance and use call light. needs attended. call light in reach. side rails up. low bed position. bed lock. bed alarm.maintained on contact isolation. will continue to monitor. Addendum: 05/18/19 at 0351 by Lazaro Coffman RN correction tpn at 45cc/hr
[2019-05-17] MEDS: LORazepam 2 MG/ML VIAL IVP PRN (21:50)
--- NOTE | 2019-05-17 22:00 | NUR ---
pt is still awake, alert. confused. no pain, stable. needs attended. bed alarm on will monitor.
--- NOTE | 2019-05-18 00:20 | NUR ---
pt had loose bm. clean pt and reposition. perianal area is red- z-guard applied. blood sugar 126, stable. needs attended. call light in reach. will monitor.
[2019-05-18 00:38] VITALS: BP_SYST 111
[2019-05-18] MEDS: ONDANSETRON HCL 4 MG/2 ML VIAL IVP PRN ×2 (01:51→22:24)
--- NOTE | 2019-05-18 02:00 | NUR ---
pt is till awake, alert, complain of nausea, prn zofran given, not distress. stable. clean pt and reposition. needs attended, call light in reach. bed alarm on. will monitor.
[2019-05-18] MEDS: LORazepam 2 MG/ML VIAL IVP PRN (02:44)
--- NOTE | 2019-05-18 02:49 | NUR ---
pt is anxious, no pain, not distress, stable. prn ativan given, educate pt. needs attended. bed alarm on. low bed position. side rails up. will monitor.
--- NOTE | 2019-05-18 04:20 | NUR ---
sleeping, comfortable. no sob, no pain, no acute distres, stable, bed alarm on. side rails up. low bed position. will continue to monitor.
--- NOTE | 2019-05-18 06:10 | NUR ---
notes: pt is awake, alert. no pain. stable. blood sugar 107, no coverage. clean pt and reposition. needs attended, call light in reach. bed alarm on. will follow-up.
--- NOTE | 2019-05-18 06:23 | NUR ---
pt is awake, alert. no pain. stable. sitting in chair. blood sugar 317, cover by sliding scale humulin R, needs attended, faith juan in reach. will follow-up. Addendum: 05/18/19 at 0625 by Lazaro Coffman RN disregards, wrong entry
[2019-05-18] MEDS: LEVOTHYROXINE SODIUM 0.1 MG VIAL IVP SCH (06:35)
--- NOTE | 2019-05-18 06:55 | NUR ---
closing: pt is now resting, no sign of pain and discomfort, no difficulty of breathing, not distress, stable, sinus rhythm at monitor. pt tpn at 45cc/hr and lipids at 5cc/hr infusing well. maintained on contact isolation. needs attended the whole shift, call light in reach, side rails up. low bed position, bed alarm on. will given bedside report to am rn.
--- NOTE | 2019-05-18 07:26 | NUR ---
Nurse Notes: report front the night nurse. Lazaro Coffman, patient is resting in bed. TPN and intralipids in infusing thru right arm hep lock,
[2019-05-18 08:15] VITALS: BP_SYST 94
[2019-05-18] MEDS: PANTOPRAZOLE SODIUM 40 MG/VIAL (PROTONIX) IVP SCH ×2 (09:59→20:09)
[2019-05-18] MEDS: LACTOBACILLUS RHAMNOSUS GG 1 CAP CAPSULE PO SCH (10:02)
[2019-05-18] MEDS: LACTULOSE 20 GM/30 ML UDC PO SCH ×3 (10:02→20:10)
[2019-05-18] MEDS: CEFEPIME 1 GM in D5W 50 ML IV SCH ×2 (10:08→20:10)
--- NOTE | 2019-05-18 11:25 | NUR ---
Nurse Notes: patient was incontinent of urine and stool. patient was clean and made dry with FOREIGN LANGUAGE PROFESSOR, positioned in bed. In no respiratory distress, no complaints of pain given.
[2019-05-18 11:46] VITALS: BP_SYST 148
--- NOTE | 2019-05-18 13:30 | NUR ---
Nurse Notes: patient refused to eat lunch, patient wants to sleep.
[2019-05-18] MEDS: MUPIROCIN 2% TOPICAL OINTMENT 22 GM TP SCH ×2 (13:36→20:42)
[2019-05-18 15:09] VITALS: BP_SYST 117
[2019-05-18] MEDS: [UNRECOGNIZED DRUG - OTHER] IV SCH ×8 (18:44)
[2019-05-18] MEDS: TPN CENTRAL IV SCH ×8 (18:44)
[2019-05-18] MEDS: K PHOS IV SCH ×8 (18:44)
[2019-05-18] MEDS: POTASSIUM ACETATE IV SCH ×8 (18:44)
[2019-05-18] MEDS: FAT EMULSIONS 250 ML IV SCH (18:46)
--- NOTE | 2019-05-18 19:10 | NUR ---
Nurse Notes: report given to the night nurse Jammie. Patient is refusing her Lactulose even after Dr Allan seen patient, Patient is awake and alert. Patient slept most of the day and refused to eat meals.
--- NOTE | 2019-05-18 19:33 | NUR ---
PM SHIFT ASSESSMENT Received patient lying in bed, aox4, on room air, vital signs stable, refuses to eat dinner, not hungry at this time, right upper arm picc line note with tpn infusing @ 45 and lipids @ 5ml/hr. Updated patient on plan of care, verbalized understanding, compliant, patient on isolation precautions for mrsa, fall and safety measures in place, call light within reach, will monitor.
[2019-05-18 20:19] VITALS: BP_SYST 112
--- NOTE | 2019-05-18 20:30 | NUR ---
MD ROUNDS Dr. Washington was at patient's bedside, updated him on patient's status, no new orders at this time.
--- NOTE | 2019-05-18 22:02 | NUR ---
RN ROUNDS Patient awake, resting quietly in bed, no distress noted, due medications administered, right upper arm picc line intact and patent, tpn and lipids infusing, call light within reach, fall and isolation precautions in place, will closely monitor.
--- NOTE | 2019-05-18 23:03 | NUR ---
RN ROUNDS Patient c/o of nausea, no vomiting noted, medicated with zofran 4 mg IVP, patient repositioned and turned with pillow support, call light within reach.
--- NOTE | 2019-05-18 23:59 | NUR ---
RN ROUNDS Patient awake, denies any pain or discomfort at this time, vitals stable, blood sugar check this pm of 99, no coverage noted, incontinence care provided, z guard applied to reddened areas, patient repositioned and turned with pillow support, call light within reach. Isolation precautions maintained.
[2019-05-19] VITALS (7 sets, daily range): BP systolic 112–154
--- NOTE | 2019-05-19 01:41 | NUR ---
RN ROUNDS Patient awake, denies any pain or discomfort at this time, had loose bm, incontinence care provided, z guard applied to reddened areas of buttock, patient repositioned and turned with pillow support, call light within reach, isolation precautions maintained, will monitor.
--- NOTE | 2019-05-19 02:30 | NUR ---
RN ROUNDS Patient awake, continues to watch tv, in no distress, tpn and lipids infusing, fall and safety measures in place, will monitor.
--- NOTE | 2019-05-19 04:06 | NUR ---
RN ROUNDS Patient awake, watching tv, denies any pain or discomfort at this time, incontinence care provided, z guard applied to reddened areas to buttock, patient repositioned and turned with pillow support, call light within reach.
[2019-05-19] MEDS: LEVOTHYROXINE SODIUM 0.1 MG VIAL IVP SCH (05:56)
--- NOTE | 2019-05-19 06:10 | NUR ---
RN ROUNDS Patient awake, denies any pain or discomfort at this time, due medications administered, tpn and lipids continues to infuse to right upper arm picc line, patient repositioned and turned with pillow support, fall and isolation precautions maintained, call light within reach, will continue to monitor until report given to am nurse.
--- NOTE | 2019-05-19 07:00 | NUR ---
AM Note Received report from endorsing RN. Pt AAOx3, forgetful, sometimes confused. Pt states no pain or distress noted at this time.
[2019-05-19 07:08] LABS: BASOPHILS % (AUTO) 0.4 % (0.0-2.0); EOSINOPHILS # (AUTO) 0.1 K/uL (0.0-0.4); EOSINOPHILS % (AUTO) 2.3 % (0.0-4.0); HEMATOCRIT 30.7 % (36-48); HEMOGLOBIN 10.1 g/dL (12.0-16.0); LYMPHOCYTES # (AUTO) 1.3 K/uL (1.0-5.5); LYMPHOCYTES % (AUTO) 25.5 % (20.5-51.5); MEAN CORPUSCULAR HEMOGLOBIN 37 pg (27-31); MEAN CORPUSCULAR HGB CONC 33 % (32-36); MEAN CORPUSCULAR VOLUME 112 fL (79.0-98.0); MONOCYTES # (AUTO) 0.7 K/uL (0.0-1.0); MONOCYTES % (AUTO) 14.8 % (1.7-9.3); NEUTROPHILS # (AUTO) 2.9 K/uL (1.8-7.7); PLATELET COUNT (AUTO) 64 K/uL (130-430); RED BLOOD CELL COUNT(AUTO) 2.75 MIL/uL (4.2-6.2); RED CELL DISTRIBUTION WIDTH 17.3 % (9.0-15.0)
[2019-05-19 07:42] LABS: ALANINE AMINOTRANSFERASE 30 U/L (12-78); ALBUMIN 2.6 g/dL (3.4-4.8); ANION GAP 7 (5-15); ASPARTATE AMINOTRANSFERASE 82 U/L (10-37); CALCIUM 8.3 mg/dL (8.4-11.0); CHLORIDE 108 mmol/L (98-107); CREATININE 0.79 mg/dL (0.55-1.30); GLUCOSE 104 mg/dL (70-99); POTASSIUM 5.5 mmol/L (3.5-5.1); SODIUM SERUM 141 mmol/L (136-145); TOTAL BILIRUBIN 0.5 mg/dL (0.0-1.0); TRIGLYCERIDES 81 mg/dL (30-150); UREA NITROGEN, BLOOD 12 mg/dL (8-21)
[2019-05-19] MEDS ORDERED: D10W 1,000 ML IV SCH (08:45)
[2019-05-19] MEDS: LACTULOSE 20 GM/30 ML UDC PO SCH ×3 (09:00→21:34)
[2019-05-19] MEDS: LACTOBACILLUS RHAMNOSUS GG 1 CAP CAPSULE PO SCH ×2 (09:00→09:10)
[2019-05-19] MEDS: MUPIROCIN 2% TOPICAL OINTMENT 22 GM TP SCH ×2 (09:10→21:35)
[2019-05-19] MEDS: PANTOPRAZOLE SODIUM 40 MG/VIAL (PROTONIX) IVP SCH ×2 (09:10→21:33)
--- NOTE | 2019-05-19 09:10 | NUR ---
Patient refused to take PO meds d/t "upset stomach and diarrhea." MDs made aware of pt's refusal despite reeducation on benefits and risks of medications. Pt performed oral care.
[2019-05-19] MEDS: CEFEPIME 1 GM in D5W 50 ML IV SCH ×2 (09:11→21:34)
--- NOTE | 2019-05-19 12:00 | NUR ---
Pt states no pain or distress at this time. Also encouraged pt to eat more but pt states, "I don't like the food."
--- NOTE | 2019-05-19 16:40 | NUR ---
Pt resting comfortably in bed. States no pain or no signs of distress noted at this time.
[2019-05-19] MEDS ORDERED: TPN CENTRAL IV SCH ×8 (18:00)
[2019-05-19] MEDS ORDERED: [UNRECOGNIZED DRUG - OTHER] IV SCH ×8 (18:00)
[2019-05-19] MEDS ORDERED: POTASSIUM ACETATE IV SCH ×8 (18:00)
[2019-05-19] MEDS ORDERED: SODIUM CHLORIDE IV SCH ×8 (18:00)
--- NOTE | 2019-05-19 18:44 | NUR ---
Closing Pt sitting comfortably in bed watching television. States no pain, no distress noted at this time. Will endorse plan of care to maintenance supervisor 2nd shift RN.
--- NOTE | 2019-05-19 19:00 | NUR ---
change of shift.pt.presents isolation status;mrsa+;nares.pt.presents quiescent affect ;calm,somnolent.pt.presents picc line;location;rt.bicept. general status stable.respiratory status stble.@yoanna air.unlabored.call,light/telephone w/in the reach of the pt.
--- NOTE | 2019-05-19 20:00 | NUR ---
pt.assessed.v/s assessed;values w/in normal limits.no c/o rinaldi,nausea.i have assessed the picc line;intact;patent;iv fluids;d10 infusing. the iv fluids are s/p d/c tpn administration.i have apprised the pt.that snacks/beverages are available w/in the shift.no requests @this hour.pt.had stated the room is cold.i have paged security;i have provided blanket;warmed.applied upon the pt.pt.assessed for cleanliness.pt.repositioned.call light/telephone placed w/in the reach of the pt. Addendum: 05/20/19 at 0351 by Rufino Andrews RN i have placed the sign;nsg/pt.alert;picc line;location;rt.[email or web address]@[email or web address].
--- NOTE | 2019-05-19 20:30 | NUR ---
i have assisted the pt.w/bedpan.i have cleaned the pt.attended to the bedpan;measured/cleaned.no additional requests @this hour
--- NOTE | 2019-05-19 21:00 | NUR ---
2100p medications administered.pt.had stated she presents nausea.i have administer zofran;4mg ivp.
[2019-05-19] MEDS: ONDANSETRON HCL 4 MG/2 ML VIAL IVP PRN (21:49)
--- NOTE | 2019-05-19 22:00 | NUR ---
pt.assessed pt.presents quiescent affect calm,somnolent.i have provide a blanket;warmed.applied upon the pt. pt.assessed for cleanliness.pt.repositioned.picc line assessed intact;patent;iv fluids infusing.call light/telephone placed w/in the reach of the pt.
--- NOTE | 2019-05-20 | NUR ---
pt.assessed.v/s assessed.pt.presents quiescent affect;calm,somnolent.pt.assessed for cleanliness.pt.repositioned. picc line assessed intact;patent iv fluids infusing.i have assessed the blood glucose;value;84mg/dl.i have provided a snack. general status stable.respiratory status stable;unlabored.call light/telephone placed w/i the reach of the pt.no c/o pain/nausea.
[2019-05-20 00:30] VITALS: BP_SYST 139
--- NOTE | 2019-05-20 01:00 | NUR ---
i have noted up-date pt's orders. has re-ordered the administration for tpn administration. to f/u in am;05/20.19.
--- NOTE | 2019-05-20 02:00 | NUR ---
pt.assessed.pt.presents quiescent affect;calm,somnolent.pt.assessed for cleanliness.pt.repositioned. general status stable.respiratory status stable;unlabored.call light/telephone placed w/in the reach of the pt.
--- NOTE | 2019-05-20 04:00 | NUR ---
pt.assessed pt.assessed for cleanliness.pt.repositioned,iv access intact;patent iv fluids infusing. general status stable.respiratory status stable.call light/telephone placed w/in the reach of the pt.
[2019-05-20] MEDS: LEVOTHYROXINE SODIUM 0.1 MG VIAL IVP SCH (05:46)
[2019-05-20] MEDS: ONDANSETRON HCL 4 MG/2 ML VIAL IVP PRN ×2 (05:50→22:32)
--- NOTE | 2019-05-20 06:45 | NUR ---
pt.assessed.pt.repositioned.pt.cleaned.i have assessd thr blood glucose:value:68mg/dl.i have administered 1amp;d50. blood glucose re-assessment;value;138mg/dl. pt.had requested medication;nausea;i have administered zofran;4mg ivp.i have administered synthroid;ivp;0700a dose. blanket;warmed provide to the pt.
[2019-05-20 06:57] LABS: ALANINE AMINOTRANSFERASE 47 U/L (12-78); ALBUMIN 2.5 g/dL (3.4-4.8); ANION GAP 4 (5-15); ASPARTATE AMINOTRANSFERASE 141 U/L (10-37); CHLORIDE 108 mmol/L (98-107); CREATININE 0.98 mg/dL (0.55-1.30); GLUCOSE 204 mg/dL (70-99); PHOSPHORUS 3.5 mg/dL (2.7-4.5); POTASSIUM 4.1 mmol/L (3.5-5.1); SODIUM SERUM 137 mmol/L (136-145); TOTAL BILIRUBIN 0.6 mg/dL (0.0-1.0); UREA NITROGEN, BLOOD 13 mg/dL (8-21)
[2019-05-20 08:00] VITALS: BP_SYST 116
--- NOTE | 2019-05-20 08:00 | NUR ---
initial notes rec patient awake alert with hob elevated. ivf infusing well through the picc line r upper arm. no infiltration noted. resp easy and unlabored . no sob noted. bed to the lowest position and side rails up and locked. call light within reached and knows when to call for assistance.
[2019-05-20 08:55] LABS: BASOPHILS % (AUTO) 0.3 % (0.0-2.0); EOSINOPHILS # (AUTO) 0.1 K/uL (0.0-0.4); EOSINOPHILS % (AUTO) 1.9 % (0.0-4.0); HEMATOCRIT 28.7 % (36-48); HEMOGLOBIN 9.4 g/dL (12.0-16.0); LYMPHOCYTES # (AUTO) 1.6 K/uL (1.0-5.5); LYMPHOCYTES % (AUTO) 30.9 % (20.5-51.5); MEAN CORPUSCULAR HEMOGLOBIN 37 pg (27-31); MEAN CORPUSCULAR HGB CONC 33 % (32-36); MONOCYTES # (AUTO) 0.5 K/uL (0.0-1.0); MONOCYTES % (AUTO) 10.6 % (1.7-9.3); NEUTROPHILS # (AUTO) 2.9 K/uL (1.8-7.7); NEUTROPHILS % (AUTO) 56.3 % (40.0-70.0); RED BLOOD CELL COUNT(AUTO) 2.56 MIL/uL (4.2-6.2); RED CELL DISTRIBUTION WIDTH 16.9 % (9.0-15.0); WHITE BLOOD COUNT (AUTO) 5.1 K/uL (4.8-10.8)
[2019-05-20 08:59] LABS: MEAN CORPUSCULAR VOLUME 112 fL (79.0-98.0)
[2019-05-20] MEDS: LACTULOSE 20 GM/30 ML UDC PO SCH ×4 (09:00→22:24)
[2019-05-20] MEDS: LACTOBACILLUS RHAMNOSUS GG 1 CAP CAPSULE PO SCH ×2 (09:00→10:06)
--- NOTE | 2019-05-20 10:00 | NUR ---
rounds pt is incontinent of urine. pt was cleaned. keep patient dry and clean.
[2019-05-20] MEDS: MUPIROCIN 2% TOPICAL OINTMENT 22 GM TP SCH (10:07)
[2019-05-20] MEDS: PANTOPRAZOLE SODIUM 40 MG/VIAL (PROTONIX) IVP SCH ×2 (10:07→22:25)
[2019-05-20] MEDS: CEFEPIME 1 GM in D5W 50 ML IV SCH (10:13)
[2019-05-20 11:52] LABS: PLATELET COUNT (AUTO) 64 K/uL (130-430)
[2019-05-20 12:00] VITALS: BP_SYST 113
--- NOTE | 2019-05-20 15:04 | NUR ---
Nutrition F/U RD reviewed pt's current EMR including diet Hx, physician notes, nursing notes, pertinent labs/meds/procedures, care trends and care activity. Current Diet Order: Mechanical soft diet Subjective information: Pt seen resting in bed at time of RD visit earlier today. IV infusing. Pt reported poor appetite, and that she has been eating very little d/t diarrhea. Pt c/o bowel leakage. Per MD notes, pt is feeling better, TPN stopped 05/19/19. Per EMR, BG and POC BG are elevated. Pt's PO intake is not adequate. Pt may benefit from Banatrol for loose stools. Current PO intake: Negligible 20% average of 3 meals Estimated Energy Expenditure (kcals/day) 2910-4279 kcal/day (30-35 kcal/kg CBW for wt gain promotion) Estimated Protein Required (g/day) 50-63 gm/day (1.2-1.5 gm/kg CBW for Geriatric maintenance) Estimated Fluid Required (l/day) 1.1 L/day (25ml/kg CBW for Geriatric maintenance) Problem/Etiology/Signs/Symptoms Inadequate nutrient intake r/t dysphagia AEB pt's diagnosis of dysphagia and negligible PO intake. (*no longer applicable) Inadequate TPN intake r/t current infusion rate AEB TPN intake of protein not meeting 75% of estimated needs. (*no longer applicable) Expected Outcomes/Goals Monitor appetite and PO intake w/ goal of pt meeting at least 75% of estimated nutritional needs, labs trending WNL, normal GI function, skin integrity/wt maintenance. Dietitian Recommendations *Recommend continuing: Mechanical Soft diet per MD orders. *Recommend addition of Banatrol TID. *Encourage pt to increase PO intake. *If by next RD visit, PO remains poor, add ONS. Follow Up High Risk: F/U in 2-3days
--- NOTE | 2019-05-20 15:09 | NUR ---
Dietitian Recommendations *Recommend continuing: Mechanical Soft diet per MD orders. *Recommend addition of Banatrol TID. *Encourage pt to increase PO intake. *If by next RD visit, PO remains poor, add ONS. RADHA, RD
[2019-05-20 16:55] VITALS: BP_SYST 120
[2019-05-20] MEDS ORDERED: *TPN PER PHARMACY XX PRN (17:30)
[2019-05-20 19:00] VITALS: BP_SYST 132
[2019-05-20 20:00] VITALS: BP_SYST 120
[2019-05-21] VITALS: BP_SYST 132
--- NOTE | 2019-05-21 00:15 | NUR ---
DR YANG CALLED K AND ORDERED TYLENOL BUT PATIENT CLAIMS SHE DO NOT TAKE TYLENOL. WILL CALL DR CELIA GOFF FOR ORDERS
[2019-05-21] MEDS: LORazepam 2 MG/ML VIAL IVP PRN (00:39)
[2019-05-21 06:15] LABS: BASOPHILS % (AUTO) 0.5 % (0.0-2.0); EOSINOPHILS # (AUTO) 0.2 K/uL (0.0-0.4); EOSINOPHILS % (AUTO) 4.1 % (0.0-4.0); HEMATOCRIT 25.8 % (36-48); HEMOGLOBIN 8.7 g/dL (12.0-16.0); LYMPHOCYTES % (AUTO) 40.5 % (20.5-51.5); MEAN CORPUSCULAR HEMOGLOBIN 38 pg (27-31); MEAN CORPUSCULAR HGB CONC 34 % (32-36); MEAN CORPUSCULAR VOLUME 111 fL (79.0-98.0); MONOCYTES # (AUTO) 0.8 K/uL (0.0-1.0); MONOCYTES % (AUTO) 16.2 % (1.7-9.3); NEUTROPHILS # (AUTO) 1.9 K/uL (1.8-7.7); NEUTROPHILS % (AUTO) 38.7 % (40.0-70.0); PLATELET COUNT (AUTO) 69 K/uL (130-430); RED BLOOD CELL COUNT(AUTO) 2.33 MIL/uL (4.2-6.2); RED CELL DISTRIBUTION WIDTH 16.3 % (9.0-15.0)
[2019-05-21 06:55] LABS: ALANINE AMINOTRANSFERASE 38 U/L (12-78); ALBUMIN 2.2 g/dL (3.4-4.8); ANION GAP 4 (5-15); ASPARTATE AMINOTRANSFERASE 97 U/L (10-37); CALCIUM 9.2 mg/dL (8.4-11.0); CHLORIDE 106 mmol/L (98-107); CREATININE 1.01 mg/dL (0.55-1.30); FREE T4 (FREE THYROXINE) 0.6 ng/dL (0.6-1.6); GLUCOSE 95 mg/dL (70-99); PHOSPHORUS 3.6 mg/dL (2.7-4.5); POTASSIUM 3.6 mmol/L (3.5-5.1); SODIUM SERUM 134 mmol/L (136-145); THYROID STIMULATING HORMONE 42.98 uIu/mL (0.34-4.82); TOTAL BILIRUBIN 0.5 mg/dL (0.0-1.0); TRIGLYCERIDES 84 mg/dL (30-150); UREA NITROGEN, BLOOD 7 mg/dL (8-21)
[2019-05-21] MEDS ORDERED: LEVOTHYROXINE SODIUM 0.1 MG TABLET PO SCH (07:00)
--- NOTE | 2019-05-21 07:26 | NUR ---
patient with complaints of cough and persistent, report to the day shift RN to follow up with the physician for orders
[2019-05-21 08:00] VITALS: BP_SYST 138
--- NOTE | 2019-05-21 08:00 | NUR ---
initial notes rec patient awake alert and eating breakfast. ivf infusing well using the r upper arm picc line. no infiltration noted. resp easy and unlabored. no sob noted. bed to the lowest position and siderails up and locked. call light within reached.
[2019-05-21] MEDS: LACTOBACILLUS RHAMNOSUS GG 1 CAP CAPSULE PO SCH (09:00)
[2019-05-21] MEDS: LACTULOSE 20 GM/30 ML UDC PO SCH (09:00)
[2019-05-21] MEDS: PANTOPRAZOLE SODIUM 40 MG/VIAL (PROTONIX) IVP SCH (09:18)
[2019-05-21] MEDS: ONDANSETRON HCL 4 MG/2 ML VIAL IVP PRN (09:34)
--- NOTE | 2019-05-21 10:00 | NUR ---
rounds hob elevated and resting comfortably. due meds were given and gordo well. no sob noted. call light within reached.
--- NOTE | 2019-05-21 10:55 | NUR ---
Discharge Planning: DCP faxed pt referral to [facility] (f [phone] p [phone]) DCP to follow up. Addendum: 05/21/19 at 1338 by Aline Espinoza DP DCP spoke to Nanette at [facility] (f [phone] p [phone]) accepting pt Rm [id number] after 5:00pm # to report [phone]. Nurse made DCP made charge nurse aware.
--- NOTE | 2019-05-21 11:12 | NUR ---
Pt note Patient refusing physical therapy at this time; will try again at a later time.
[2019-05-21 12:35] VITALS: BP_SYST 132
--- NOTE | 2019-05-21 12:40 | NUR ---
rounds pt eating lunch. refused to have bs checked at this time and want it resume when tpn starts. no osb noted. call light within reached.
--- NOTE | 2019-05-21 15:02 | NUR ---
[facility] Note Patient was referred to [facility]: has a history of etoh use and was in ICU. Patient was not alert and oriented on previous attempts to see her. INTERMODAL OWNER OPERATOR TRUCK DRIVER met with patient at bedside. She was alert and oriented. Patient is satisfied with the plan to transfer to [facility]. She denies heavy alcohol use and admits to light social drinking. Patient's tox screen was negative for this admission. Patient stated that if ordered by her doctors, she would give up all alcohol use. Patient did not want substance abuse resources.
--- NOTE | 2019-05-21 16:00 | NUR ---
DC PLANNING: CM SPOKE WITH PATIENT AT BEDSIDE REGARDING DC PLAN TO [facility]. PATIENT STATED SHE WAS ALREADY AWARE. PATIENT AGREED TO THE DC PLAN TO [facility] TODAY.
[2019-05-21 16:21] VITALS: BP_SYST 130
[2019-05-21 17:50] VITALS: BP_SYST 138
[2019-05-21] MEDS ORDERED: SODIUM ACETATE IV SCH ×9 (18:00)
[2019-05-21] MEDS ORDERED: FAT EMULSIONS 250 ML IV SCH (18:00)
[2019-05-21] MEDS ORDERED: TPN CENTRAL IV SCH ×9 (18:00)
[2019-05-21] MEDS ORDERED: [UNRECOGNIZED DRUG - OTHER] IV SCH ×9 (18:00)
[2019-05-21] MEDS ORDERED: MAGNESIUM SULFATE IV SCH ×9 (18:00)
[2019-05-21] MEDS ORDERED: MVI IV SCH ×9 (18:00)
--- NOTE | 2019-05-21 18:45 | NUR ---
closing notes pt was picked up by [facility]. report given to patti fish patient. picc line intact on the r upper arm. no infiltration noted. id band was removed and repl;aced with a paper id band. stabe and needs attended.
[2019-05-21] MEDS ORDERED: PANTOPRAZOLE SODIUM 40 MG TAB PO SCH (21:00)
== END 2019-05-21 18:41 | DRG 871 ==
LOC: SED 10:07 → INTOOBSV 13:33 → OBSVTOIN 13:33 → SMU 13:33 → SIC 05-14 11:01 → STU 05-17 15:31 → SMU 05-19 10:13
PROVIDERS: ADMIT Family Medicine; ATTEND Family Medicine
PROC: 02HV33Z Insertion of Infusion Device into Superior Vena Cava, Percutaneous Approach (ICD-10-PCS; 2019-05-14)
PROC: B548ZZA Ultrasonography of Superior Vena Cava, Guidance (ICD-10-PCS; 2019-05-14)
PROC: 0DB68ZX Excision of Stomach, Via Natural or Artificial Opening Endoscopic, Diagnostic (ICD-10-PCS; 2019-05-15)
PROC: 3E0336Z Introduction of Nutritional Substance into Peripheral Vein, Percutaneous Approach (ICD-10-PCS; principal; 2019-05-16)
DX: A41.9 Sepsis, unspecified organism (principal); R65.21 Severe sepsis with septic shock; N39.0 Urinary tract infection, site not specified; E87.2 Acidosis; N17.9 Acute kidney failure, unspecified; G93.40 Encephalopathy, unspecified; M54.9 Dorsalgia, unspecified; D69.6 Thrombocytopenia, unspecified; F10.20 Alcohol dependence, uncomplicated; G89.4 Chronic pain syndrome; I10 Essential (primary) hypertension; R13.10 Dysphagia, unspecified; B96.1 Klebsiella pneumoniae [K. pneumoniae] as the cause of diseases classified elsewhere; E83.51 Hypocalcemia; E87.6 Hypokalemia; E03.8 Other specified hypothyroidism; K28.9 Gastrojejunal ulcer, unspecified as acute or chronic, without hemorrhage or perforation; E83.39 Other disorders of phosphorus metabolism; D64.9 Anemia, unspecified; K21.9 Gastro-esophageal reflux disease without esophagitis; M19.90 Unspecified osteoarthritis, unspecified site; M06.9 Rheumatoid arthritis, unspecified; R29.6 Repeated falls; Z79.890 Hormone replacement therapy; Z79.899 Other long term (current) drug therapy; Z87.891 Personal history of nicotine dependence; Z87.440 Personal history of urinary (tract) infections; Z86.718 Personal history of other venous thrombosis and embolism; Z88.1 Allergy status to other antibiotic agents; Z88.2 Allergy status to sulfonamides; Z88.0 Allergy status to penicillin; Z98.84 Bariatric surgery status; Z91.041 Radiographic dye allergy status; Z91.02 Food additives allergy status; Z88.8 Allergy status to other drugs, medicaments and biological substances; Z91.018 Allergy to other foods; Z91.09 Other allergy status, other than to drugs and biological substances; Z90.49 Acquired absence of other specified parts of digestive tract; Z22.322 Carrier or suspected carrier of Methicillin resistant Staphylococcus aureus; Z71.41 Alcohol abuse counseling and surveillance of alcoholic
CPT/HCPCS: 36415; 36600; 71045; 76700-TC; 80048; 80053; 80061; 81000-TC; 82140-TC; 82550-TC; 82803-TC; 82962; 83605; 83690-TC; 83735-TC; 83880; 84100-TC; 84439; 84443-TC; 84478-TC; 84484; 85025; 85610-TC; 87040-TC; 87081; 87086; 87186-TC; 88305; 88312; 88313; 93005; 96361; 96365; 96375; 97110-GP; 97116-GP; 97530-GP; 99285; C1751; C9113; G0378; G0482; J0692; J1170; J1815; J1956; J2060; J2250; J2310; J2405; J3010; J3411; J3475; J3480; J3490; J7030; J7050; J7060; J7131; P9046

== ENCOUNTER 2019-08-23 13:00 | Emergency (ER) | payer OTHER, MEDICARE ==
[~2019-08-23] VITALS: Ht 144.8 cm; Wt 41.7 kg
[2019-08-23 13:00] VITALS: BP_SYST 138
[~2019-08-23 13:00] MED LIST changes: +AMLO2.5T2 PO; -AMLO5TAB4 PO; +FAMO20TA8 PO; +IBUP-1969 PO; +L.RH1CAP PO; +LEVO88TA2 PO
[2019-08-23 14:03] LABS: BASOPHILS % (AUTO) 0.2 % (0.0-2.0); EOSINOPHILS # (AUTO) 0.2 K/uL (0.0-0.4); EOSINOPHILS % (AUTO) 1.8 % (0.0-4.0); HEMATOCRIT 35.4 % (36-48); HEMOGLOBIN 11.9 g/dL (12.0-16.0); LYMPHOCYTES # (AUTO) 1.5 K/uL (1.0-5.5); LYMPHOCYTES % (AUTO) 16.5 % (20.5-51.5); MEAN CORPUSCULAR HEMOGLOBIN 36 pg (27-31); MEAN CORPUSCULAR HGB CONC 34 % (32-36); MEAN CORPUSCULAR VOLUME 106 fL (79.0-98.0); MONOCYTES # (AUTO) 0.6 K/uL (0.0-1.0); MONOCYTES % (AUTO) 6.5 % (1.7-9.3); NEUTROPHILS # (AUTO) 6.6 K/uL (1.8-7.7); PLATELET COUNT (AUTO) 231 K/uL (130-430); RED BLOOD CELL COUNT(AUTO) 3.35 MIL/uL (4.2-6.2); RED CELL DISTRIBUTION WIDTH 15.9 % (9.0-15.0); WHITE BLOOD COUNT (AUTO) 8.8 K/uL (4.8-10.8)
[2019-08-23 14:12] LABS: ANION GAP 14 (5-15); CALCIUM 10.6 mg/dL (8.4-11.0); CHLORIDE 109 mmol/L (98-107); CREATININE 1.34 mg/dL (0.55-1.30); GLUCOSE 97 mg/dL (70-99); SODIUM SERUM 137 mmol/L (136-145); UREA NITROGEN, BLOOD 29 mg/dL (8-21)
[2019-08-23] MEDS ORDERED: POTASSIUM CHLORIDE 20 MEQ/PKT PACKET PO ONE (14:15)
[2019-08-23 14:17] LABS: ALANINE AMINOTRANSFERASE 15 U/L (12-78); ASPARTATE AMINOTRANSFERASE 20 U/L (10-37); TOTAL BILIRUBIN 0.3 mg/dL (0.0-1.0)
[2019-08-23 14:18] LABS: ALCOHOL, BLOOD < 3 mg/dL (<10)
[2019-08-23 14:18] LABS: BILIRUBIN,URINE NEGATIVE (NEGATIVE); BLOOD, URINE 2+ (NEGATIVE); CLARITY/URINE CLOUDY (CLEAR); COLOR,URINE YELLOW (YELLOW); GLUCOSE,URINE NEGATIVE (NEGATIVE); KETONES,URINE NEGATIVE (NEGATIVE); LEUKOCYTE ESTERASE ,URINE 3+ (NEGATIVE); NITRITE, URINE POSITIVE (NEGATIVE); PROTEIN URINE 2+ (NEGATIVE); UROBILINOGEN,URINE 0.2 (0.2-1.0)
[2019-08-23 14:21] LABS: POTASSIUM 2.5 mmol/L (3.5-5.1)
[2019-08-23 14:39] LABS: BARBITURATE, URINE NEGATIVE (NEG <=200); BENZODIAZEPINE, URINE NEGATIVE (NEG <=150); CANNABINOID, URINE NEGATIVE (NEG <=50); COCAINE, URINE NEGATIVE (NEG <=150); METHAMPHETAMINES SCREEN,URINE NEGATIVE (NEG <=500); OPIATE, URINE POSITIVE (NEG <=100); PHENCYCLIDINE SCREEN,URINE NEGATIVE (NEG <=25); UR TRICYCLIC ANTIDEPRESSANTS NEGATIVE (NEG <=300); URINE AMPHETAMINE NEGATIVE (NEG <=500); URINE METHADONE NEGATIVE (NEG <=200); URINE OXYCODONE SCREEN NEGATIVE (NEG <=100); URINE PROPOXYPHENE SCREEN NEGATIVE (NEG <=300)
[2019-08-23 14:45] LABS: BACTERIA,URINE MANY /HPF (None Seen); MUCUS,URINE None Seen /LPF (None Seen); RBC,URINE 0-3 /HPF (0-3); WBC,URINE >100 /HPF (0-3)
[2019-08-23] MEDS ORDERED: NACL 0.9% 1,000 ML IV ONE (14:45)
[2019-08-23] MEDS ORDERED: NITROFURANTOIN MONOHYD/M-CRYST 100 MG CAPSULE PO ONE (14:45)
[2019-08-23] MEDS ORDERED: MORPHINE 2 MG/ML INJ. SYRINGE IVP ONE (15:45)
[2019-08-23 18:00] VITALS: BP_SYST 138
== END 2019-08-23 18:00 | disposition home or self-care (01) ==
LOC: SED 13:00
DX: N39.0 Urinary tract infection, site not specified (principal); E87.6 Hypokalemia; I12.9 Hypertensive chronic kidney disease with stage 1 through stage 4 chronic kidney disease, or unspecified chronic kidney disease; N18.9 Chronic kidney disease, unspecified; E03.9 Hypothyroidism, unspecified; R93.0 Abnormal findings on diagnostic imaging of skull and head, not elsewhere classified; Z90.49 Acquired absence of other specified parts of digestive tract; Z88.0 Allergy status to penicillin; Z88.2 Allergy status to sulfonamides; Z88.1 Allergy status to other antibiotic agents; Z88.8 Allergy status to other drugs, medicaments and biological substances; Z91.018 Allergy to other foods; Z79.899 Other long term (current) drug therapy
CPT/HCPCS: 36415; 70450; 71045; 72100; 72220; 73521; 80053; 80307; 81000; 83605; 84484; 85025; 87040; 87086; 87186; 93005; 96361; 96374; 99284; G0482; J2270; J7030

== ENCOUNTER 2019-09-04 13:57 | Inpatient (IN) | payer OTHER, MEDICARE ==
[~2019-09-04] VITALS: Ht 149.9 cm; Wt 43.1 kg
[2019-09-04 14:26] VITALS: BP_SYST 156
[2019-09-04] MEDS ORDERED: ONDANSETRON HCL 4 MG/2 ML VIAL IVP ONE (14:45)
[2019-09-04] MEDS ORDERED: NACL 0.9% 1,000 ML IV ONE (14:45)
[2019-09-04] MEDS ORDERED: MORPHINE 4 MG/ML INJ. SYRINGE IVP ONE (14:45)
[2019-09-04 15:21] LABS: ANION GAP 14 (5-15); CHLORIDE 112 mmol/L (98-107); CREATININE 1.27 mg/dL (0.55-1.30); GLUCOSE 112 mg/dL (70-99); POTASSIUM 3.5 mmol/L (3.5-5.1); SODIUM SERUM 137 mmol/L (136-145); UREA NITROGEN, BLOOD 39 mg/dL (8-21)
[2019-09-04 15:22] LABS: PROTHROMBIN TIME 9.7 SECS (9.5-12.5)
[2019-09-04 15:30] LABS: BILIRUBIN,URINE 1+ (NEGATIVE); BLOOD, URINE 2+ (NEGATIVE); COLOR,URINE YELLOW (YELLOW); GLUCOSE,URINE NEGATIVE (NEGATIVE); KETONES,URINE TRACE (NEGATIVE); LEUKOCYTE ESTERASE ,URINE NEGATIVE (NEGATIVE); NITRITE, URINE NEGATIVE (NEGATIVE); PROTEIN URINE 2+ (NEGATIVE); UROBILINOGEN,URINE 0.2 (0.2-1.0)
[2019-09-04 15:31] LABS: ALANINE AMINOTRANSFERASE 14 U/L (12-78); ALBUMIN 3.2 g/dL (3.4-4.8); ASPARTATE AMINOTRANSFERASE 25 U/L (10-37); LIPASE 126 U/L (73-393); TOTAL BILIRUBIN 0.3 mg/dL (0.0-1.0)
[2019-09-04 15:34] LABS: ALCOHOL, BLOOD < 3 mg/dL (<10); CALCIUM 13.4 mg/dL (8.4-11.0)
[2019-09-04] MEDS ORDERED: NITR-85 PO (15:57)
[2019-09-04 16:00] LABS: BASOPHILS % (AUTO) 0.4 % (0.0-2.0); EOSINOPHILS % (AUTO) 0.4 % (0.0-4.0); HEMATOCRIT 35.1 % (36-48); HEMOGLOBIN 11.9 g/dL (12.0-16.0); LYMPHOCYTES # (AUTO) 1.2 K/uL (1.0-5.5); LYMPHOCYTES % (AUTO) 14.7 % (20.5-51.5); MEAN CORPUSCULAR HEMOGLOBIN 37 pg (27-31); MEAN CORPUSCULAR HGB CONC 34 % (32-36); MEAN CORPUSCULAR VOLUME 108 fL (79.0-98.0); MONOCYTES # (AUTO) 0.5 K/uL (0.0-1.0); MONOCYTES % (AUTO) 6.4 % (1.7-9.3); NEUTROPHILS # (AUTO) 6.4 K/uL (1.8-7.7); NEUTROPHILS % (AUTO) 78.1 % (40.0-70.0); PLATELET COUNT (AUTO) 185 K/uL (130-430); RED BLOOD CELL COUNT(AUTO) 3.25 MIL/uL (4.2-6.2); WHITE BLOOD COUNT (AUTO) 8.2 K/uL (4.8-10.8)
[2019-09-04 16:13] LABS: CLARITY/URINE SLIGHTLY HAZY (CLEAR)
[2019-09-04 16:24] LABS: BACTERIA,URINE FEW /HPF (None Seen)
[2019-09-04 16:25] LABS: FINE GRANULAR CASTS,URINE 0-10 /LPF (None Seen); MUCUS,URINE 1+ /LPF (None Seen)
[2019-09-04 18:38] VITALS: BP_SYST 124
[2019-09-04 20:00] VITALS: BP_SYST 139
[2019-09-04] MEDS ORDERED: PANTOPRAZOLE SODIUM 40 MG TAB PO SCH (21:00)
[2019-09-04] MEDS: KCL 20 mEq in D5/0.45NS 1000mL 1,000 ML IV SCH (21:34)
[2019-09-04] MEDS ORDERED: MORPHINE 4 MG/ML INJ. SYRINGE IVP PRN (22:00)
[2019-09-04] MEDS ORDERED: ONDANSETRON HCL 4 MG/2 ML VIAL IVP PRN (22:00)
[2019-09-05 00:53] VITALS: BP_SYST 165
[2019-09-05 05:49] LABS: BASOPHILS % (AUTO) 0.6 % (0.0-2.0); EOSINOPHILS # (AUTO) 0.1 K/uL (0.0-0.4); EOSINOPHILS % (AUTO) 1.7 % (0.0-4.0); HEMATOCRIT 29.3 % (36-48); HEMOGLOBIN 9.8 g/dL (12.0-16.0); LYMPHOCYTES # (AUTO) 1.6 K/uL (1.0-5.5); LYMPHOCYTES % (AUTO) 26.2 % (20.5-51.5); MEAN CORPUSCULAR HEMOGLOBIN 37 pg (27-31); MEAN CORPUSCULAR HGB CONC 34 % (32-36); MEAN CORPUSCULAR VOLUME 109 fL (79.0-98.0); MONOCYTES # (AUTO) 0.5 K/uL (0.0-1.0); MONOCYTES % (AUTO) 8.3 % (1.7-9.3); NEUTROPHILS % (AUTO) 63.2 % (40.0-70.0); PLATELET COUNT (AUTO) 148 K/uL (130-430); RED BLOOD CELL COUNT(AUTO) 2.69 MIL/uL (4.2-6.2); RED CELL DISTRIBUTION WIDTH 15.2 % (9.0-15.0); WHITE BLOOD COUNT (AUTO) 6.3 K/uL (4.8-10.8)
[2019-09-05 06:01] LABS: ANION GAP 12 (5-15); CALCIUM 11.9 mg/dL (8.4-11.0); CHLORIDE 115 mmol/L (98-107); CREATININE 0.98 mg/dL (0.55-1.30); GLUCOSE 84 mg/dL (70-99); SODIUM SERUM 139 mmol/L (136-145); UREA NITROGEN, BLOOD 31 mg/dL (8-21)
[2019-09-05 06:05] LABS: POTASSIUM 2.9 mmol/L (3.5-5.1)
[2019-09-05] MEDS ORDERED: POTASSIUM CHLORIDE 20 MEQ TAB.PRT.SR PO SCH (06:30)
[2019-09-05] MEDS ORDERED: POTASSIUM CHLORIDE 40 MEQ in NS 250 ML IV SCH (06:30)
[2019-09-05] MEDS: LEVOTHYROXINE SODIUM 0.088 MG TABLET PO SCH (08:17)
[2019-09-05] MEDS: KCL 20 mEq in D5/0.45NS 1000mL 1,000 ML IV SCH ×2 (08:17→20:55)
[2019-09-05 08:24] VITALS: BP_SYST 128
[2019-09-05] MEDS: PANTOPRAZOLE SODIUM 40 MG/VIAL (PROTONIX) IVP SCH ×2 (08:56→21:00)
[2019-09-05 12:16] VITALS: BP_SYST 135
[2019-09-05 16:00] VITALS: BP_SYST 124
[2019-09-05 20:00] VITALS: BP_SYST 126
[2019-09-06 01:38] VITALS: BP_SYST 114
[2019-09-06 06:16] LABS: BASOPHILS % (AUTO) 0.3 % (0.0-2.0); EOSINOPHILS # (AUTO) 0.1 K/uL (0.0-0.4); EOSINOPHILS % (AUTO) 1.9 % (0.0-4.0); HEMATOCRIT 30.8 % (36-48); HEMOGLOBIN 10.2 g/dL (12.0-16.0); LYMPHOCYTES # (AUTO) 1.3 K/uL (1.0-5.5); LYMPHOCYTES % (AUTO) 22.5 % (20.5-51.5); MEAN CORPUSCULAR HEMOGLOBIN 37 pg (27-31); MEAN CORPUSCULAR HGB CONC 33 % (32-36); MEAN CORPUSCULAR VOLUME 111 fL (79.0-98.0); MONOCYTES # (AUTO) 0.4 K/uL (0.0-1.0); MONOCYTES % (AUTO) 6.8 % (1.7-9.3); NEUTROPHILS # (AUTO) 3.9 K/uL (1.8-7.7); NEUTROPHILS % (AUTO) 68.5 % (40.0-70.0); PLATELET COUNT (AUTO) 139 K/uL (130-430); RED BLOOD CELL COUNT(AUTO) 2.78 MIL/uL (4.2-6.2); RED CELL DISTRIBUTION WIDTH 15.5 % (9.0-15.0); WHITE BLOOD COUNT (AUTO) 5.7 K/uL (4.8-10.8)
[2019-09-06 06:28] LABS: CALCIUM 11.9 mg/dL (8.4-11.0); CREATININE 0.93 mg/dL (0.55-1.30); GLUCOSE 103 mg/dL (70-99); UREA NITROGEN, BLOOD 24 mg/dL (8-21)
[2019-09-06 06:31] LABS: INR 0.9 (0.8-1.2); PROTHROMBIN TIME 9.5 SECS (9.5-12.5)
[2019-09-06] MEDS: LEVOTHYROXINE SODIUM 0.088 MG TABLET PO SCH (06:34)
[2019-09-06 06:49] LABS: ANION GAP 10 (5-15); CHLORIDE 116 mmol/L (98-107); POTASSIUM 4.1 mmol/L (3.5-5.1); SODIUM SERUM 136 mmol/L (136-145)
[2019-09-06 08:00] VITALS: BP_SYST 110
[2019-09-06] MEDS: LACTOBACILLUS RHAMNOSUS GG 1 CAP CAPSULE PO SCH (09:00)
[2019-09-06] MEDS: PANTOPRAZOLE SODIUM 40 MG/VIAL (PROTONIX) IVP SCH ×2 (10:05→20:52)
[2019-09-06] MEDS ORDERED: MEPERIDINE HCL/PF 100 MG/ML AMP ONE (10:37)
[2019-09-06] MEDS ORDERED: MIDAZOLAM HCL 5 MG/5 ML VIAL ONE (10:37)
[2019-09-06] MEDS ORDERED: SUCRALFATE 1 GM TABLET PO ONE (11:30)
[2019-09-06 12:00] VITALS: BP_SYST 120
[2019-09-06] MEDS: KCL 20 mEq in D5/0.45NS 1000mL 1,000 ML IV SCH ×2 (12:19→23:35)
[2019-09-06 16:00] VITALS: BP_SYST 125
[2019-09-06] MEDS: SUCRALFATE 1 GM TABLET PO SCH (17:04)
[2019-09-06 20:00] VITALS: BP_SYST 128
[2019-09-07] VITALS: BP_SYST 122
[2019-09-07] MEDS: SUCRALFATE 1 GM TABLET PO SCH ×2 (06:38→16:50)
[2019-09-07] MEDS: LEVOTHYROXINE SODIUM 0.088 MG TABLET PO SCH (06:39)
[2019-09-07 07:21] LABS: BASOPHILS % (AUTO) 0.4 % (0.0-2.0); EOSINOPHILS # (AUTO) 0.1 K/uL (0.0-0.4); EOSINOPHILS % (AUTO) 2.5 % (0.0-4.0); HEMATOCRIT 29.3 % (36-48); HEMOGLOBIN 9.8 g/dL (12.0-16.0); LYMPHOCYTES # (AUTO) 1.3 K/uL (1.0-5.5); LYMPHOCYTES % (AUTO) 23.8 % (20.5-51.5); MEAN CORPUSCULAR HEMOGLOBIN 37 pg (27-31); MEAN CORPUSCULAR HGB CONC 34 % (32-36); MEAN CORPUSCULAR VOLUME 109 fL (79.0-98.0); MONOCYTES # (AUTO) 0.4 K/uL (0.0-1.0); MONOCYTES % (AUTO) 7.2 % (1.7-9.3); NEUTROPHILS # (AUTO) 3.5 K/uL (1.8-7.7); NEUTROPHILS % (AUTO) 66.1 % (40.0-70.0); PLATELET COUNT (AUTO) 140 K/uL (130-430); RED BLOOD CELL COUNT(AUTO) 2.69 MIL/uL (4.2-6.2); RED CELL DISTRIBUTION WIDTH 15.1 % (9.0-15.0); WHITE BLOOD COUNT (AUTO) 5.3 K/uL (4.8-10.8)
[2019-09-07 07:42] LABS: ANION GAP 9 (5-15); CALCIUM 12.1 mg/dL (8.4-11.0); CHLORIDE 118 mmol/L (98-107); CREATININE 0.97 mg/dL (0.55-1.30); GLUCOSE 107 mg/dL (70-99); POTASSIUM 4.2 mmol/L (3.5-5.1); SODIUM SERUM 139 mmol/L (136-145); UREA NITROGEN, BLOOD 16 mg/dL (8-21)
[2019-09-07 08:00] VITALS: BP_SYST 133
[2019-09-07] MEDS: LACTOBACILLUS RHAMNOSUS GG 1 CAP CAPSULE PO SCH (08:47)
[2019-09-07] MEDS: PANTOPRAZOLE SODIUM 40 MG/VIAL (PROTONIX) IVP SCH ×2 (08:48→16:39)
[2019-09-07 12:19] VITALS: BP_SYST 143
[2019-09-07] MEDS: KCL 20 mEq in D5/0.45NS 1000mL 1,000 ML IV SCH ×2 (12:55→23:58)
[2019-09-07 20:00] VITALS: BP_SYST 135
[2019-09-08 01:02] VITALS: BP_SYST 142
[2019-09-08] MEDS: SUCRALFATE 1 GM TABLET PO SCH ×2 (06:18→16:25)
[2019-09-08] MEDS: LEVOTHYROXINE SODIUM 0.088 MG TABLET PO SCH (06:19)
[2019-09-08 07:17] LABS: BASOPHILS % (AUTO) 0.3 % (0.0-2.0); EOSINOPHILS # (AUTO) 0.1 K/uL (0.0-0.4); EOSINOPHILS % (AUTO) 2.1 % (0.0-4.0); HEMATOCRIT 28.9 % (36-48); HEMOGLOBIN 9.9 g/dL (12.0-16.0); LYMPHOCYTES # (AUTO) 1.4 K/uL (1.0-5.5); LYMPHOCYTES % (AUTO) 27.9 % (20.5-51.5); MEAN CORPUSCULAR HEMOGLOBIN 37 pg (27-31); MEAN CORPUSCULAR HGB CONC 34 % (32-36); MEAN CORPUSCULAR VOLUME 108 fL (79.0-98.0); MONOCYTES # (AUTO) 0.4 K/uL (0.0-1.0); MONOCYTES % (AUTO) 8.7 % (1.7-9.3); PLATELET COUNT (AUTO) 157 K/uL (130-430); RED BLOOD CELL COUNT(AUTO) 2.68 MIL/uL (4.2-6.2); RED CELL DISTRIBUTION WIDTH 14.7 % (9.0-15.0); WHITE BLOOD COUNT (AUTO) 4.9 K/uL (4.8-10.8)
[2019-09-08 07:41] LABS: ALANINE AMINOTRANSFERASE 27 U/L (12-78); ALBUMIN 2.4 g/dL (3.4-4.8); ANION GAP 8 (5-15); ASPARTATE AMINOTRANSFERASE 35 U/L (10-37); CALCIUM 11.3 mg/dL (8.4-11.0); CHLORIDE 115 mmol/L (98-107); CREATININE 0.82 mg/dL (0.55-1.30); GLUCOSE 94 mg/dL (70-99); POTASSIUM 3.1 mmol/L (3.5-5.1); SODIUM SERUM 136 mmol/L (136-145); TOTAL BILIRUBIN 0.3 mg/dL (0.0-1.0); UREA NITROGEN, BLOOD 15 mg/dL (8-21)
[2019-09-08] MEDS: PANTOPRAZOLE SODIUM 40 MG/VIAL (PROTONIX) IVP SCH ×2 (10:38→21:59)
[2019-09-08] MEDS: LACTOBACILLUS RHAMNOSUS GG 1 CAP CAPSULE PO SCH (10:38)
[2019-09-08 12:20] VITALS: BP_SYST 141
[2019-09-08 16:10] VITALS: BP_SYST 155
[2019-09-08 20:00] VITALS: BP_SYST 149
[2019-09-08] MEDS: KCL 20 mEq in D5/0.45NS 1000mL 1,000 ML IV SCH (22:00)
[2019-09-09 00:35] VITALS: BP_SYST 132
[2019-09-09] MEDS: SUCRALFATE 1 GM TABLET PO SCH ×2 (06:09→17:05)
[2019-09-09] MEDS: LEVOTHYROXINE SODIUM 0.088 MG TABLET PO SCH (06:09)
[2019-09-09 08:25] VITALS: BP_SYST 153
[2019-09-09] MEDS: PANTOPRAZOLE SODIUM 40 MG/VIAL (PROTONIX) IVP SCH ×2 (08:51→21:00)
[2019-09-09] MEDS: LACTOBACILLUS RHAMNOSUS GG 1 CAP CAPSULE PO SCH (08:51)
[2019-09-09] MEDS: KCL 20 mEq in D5/0.45NS 1000mL 1,000 ML IV SCH ×2 (12:12→19:00)
[2019-09-09 16:00] VITALS: BP_SYST 148
[2019-09-09 20:00] VITALS: BP_SYST 150
[2019-09-10 00:36] VITALS: BP_SYST 132
[2019-09-10 04:00] VITALS: BP_SYST 128
[2019-09-10] MEDS: SUCRALFATE 1 GM TABLET PO SCH ×2 (07:00→18:13)
[2019-09-10] MEDS: LEVOTHYROXINE SODIUM 0.088 MG TABLET PO SCH (07:05)
[2019-09-10] MEDS: KCL 20 mEq in D5/0.45NS 1000mL 1,000 ML IV SCH (07:35)
[2019-09-10] MEDS: LACTOBACILLUS RHAMNOSUS GG 1 CAP CAPSULE PO SCH (11:16)
[2019-09-10] MEDS: PANTOPRAZOLE SODIUM 40 MG/VIAL (PROTONIX) IVP SCH (11:16)
[2019-09-10 13:01] VITALS: BP_SYST 146
[2019-09-10 17:01] VITALS: BP_SYST 139
[2019-09-10 18:36] VITALS: BP_SYST 140
== END 2019-09-10 19:25 | DRG 377 ==
LOC: SED 13:57 → STU 16:57 → SMU 09-08 11:24
PROVIDERS: ADMIT Family Medicine; ATTEND Family Medicine
PROC: 0DB68ZX Excision of Stomach, Via Natural or Artificial Opening Endoscopic, Diagnostic (ICD-10-PCS; principal; 2019-09-06 12:00)
DX: K28.4 Chronic or unspecified gastrojejunal ulcer with hemorrhage (principal); N17.0 Acute kidney failure with tubular necrosis; K20.9 Esophagitis, unspecified; M06.9 Rheumatoid arthritis, unspecified; E86.0 Dehydration; D64.9 Anemia, unspecified; I10 Essential (primary) hypertension; E83.52 Hypercalcemia; K27.9 Peptic ulcer, site unspecified, unspecified as acute or chronic, without hemorrhage or perforation; T39.395A Adverse effect of other nonsteroidal anti-inflammatory drugs [NSAID], initial encounter; E03.9 Hypothyroidism, unspecified; Z88.1 Allergy status to other antibiotic agents; Z91.041 Radiographic dye allergy status; Z88.0 Allergy status to penicillin; Z88.2 Allergy status to sulfonamides; Z88.8 Allergy status to other drugs, medicaments and biological substances; Z91.018 Allergy to other foods; Z79.899 Other long term (current) drug therapy; Y92.89 Other specified places as the place of occurrence of the external cause
CPT/HCPCS: 36415; 43239; 80048; 80053; 81000-TC; 83690-TC; 83735-TC; 85025; 85610-TC; 85730-TC; 87077; 87086; 87186-TC; 88312; 88313; 96361; 96374; 96375; 97112-GP; 99285; C9113; G0378; G0482; J2175; J2250; J2270; J2405; J3480; J7030; J7050

== ENCOUNTER 2019-10-14 15:56 | Outpatient (CLI) | payer OTHER, MEDICARE ==
[~2019-10-14 15:56] MED LIST changes: +NITR-85 PO
== END 2019-10-14 20:47 | disposition home or self-care (01) ==
LOC: SUS 15:56
PROVIDERS: ATTEND Orthopaedic Surgery
DX: I82.411 Acute embolism and thrombosis of right femoral vein (principal)
CPT/HCPCS: 93971